=== PATIENT | female | born 1935 | race Hispanic/Latino ===

== ENCOUNTER 2017-07-28 11:08 | Emergency (ER) | payer MEDICARE ==
[~2017-07-28] VITALS: Ht 165.1 cm; Wt 59.0 kg
[~2017-07-28 11:08] MED LIST: ALBUTEROL SULF8.5 GM; ASPIRIN CHEW81 MG PO; DIGOXIN125 MCG PO; FUROSEMIDE40 MG PO; HUMALOG100 UNIT/1 SQ; LANTUS100 UNITS/ SQ; LEVAQUIN500 MG PO; LISINOPRIL10 MG PO; LORATADINE10 MG PO; LOVAZA1 GM PO; METOPROLOL TART50 MG PO; NIFEDIPINE10 MG PO; PANTOPRAZOLE SO40 MG PO; PLAVIX75 MG PO; POTASSIUM CHLO20 ME1 PO; PRAVASTATIN SOD40 MG PO; TRAMADOL-ACETAMI1 EA PO; TRESIBA SQ; ZETIA10 MG PO
[2017-07-28 11:59] LABS: BASOPHILS # (AUTO) 0.1 (0.0-0.1); BASOPHILS % 0.5 % (0.0-1.0); EOSINOPHILS # (AUTO) 0.1 (0.0-0.4); EOSINOPHILS % 0.6 % (0.0-6.0); HEMATOCRIT 35.8 % (34.2-44.1); HEMOGLOBIN 12.3 g/dL (12.0-16.0); LYMPHOCYTES # (AUTO) 1.5 (1.0-3.2); LYMPHOCYTES % 16.4 % (18.0-39.1); MEAN CORPUSCULAR HEMOGLOBIN 30.7 pg (28-32); MEAN CORPUSCULAR HGB CONC 34.4 g/dL (31-35); MEAN CORPUSCULAR VOLUME 89.3 fL (81-99); MONOCYTES # (AUTO) 0.3 (0.2-0.8); MONOCYTES % 3.3 % (4.4-11.3); NEUTROPHILS # (AUTO) 7.4 (2.1-6.9); NEUTROPHILS % 78.8 % (38.7-80.0); PLATELET COUNT 298 x10e3/uL (140-360); RED BLOOD COUNT 4.01 x10e6/uL (3.6-5.1); RED CELL DISTRIBUTION WIDTH 13.3 % (11.7-14.4)
[2017-07-28 12:10] LABS: ALBUMIN 3.5 g/dL (3.5-5.0); ALBUMIN/GLOBULIN RATIO 0.9 (0.8-2.0); ANION GAP 17.1 mmol/L (8-16); CALCIUM 9.9 mg/dL (8.4-10.2); CREATININE, SERUM 1.5 mg/dL (0.57-1.11); POTASSIUM 4.1 mmol/L (3.5-5.1)
--- NOTE | 2017-07-28 12:45 | Diagnostic Imaging Report ---
PROCEDURE:X-RAY ABDOMEN - KUB COMPARISON:None. INDICATIONS:CONSTIPATION FINDINGS: Nonobstructive bowel gas pattern with mild amount of retained stool. No air-filled, dilated loops of bowel. No abnormal calcifications overlie the genitourinary system. Left pelvic phlebolith. No acute bony abnormalities. CONCLUSION: Nonobstructive bowel gas pattern with mild amount of retained stool. Phong Sheffield M.D. Dictated by: Phong Sheffield M.D. on 07/28/2017 at 12:46 Electronically approved by: Phong Sheffield M.D. on 07/28/2017 at 12:46
[2017-07-28 12:52] LABS: CLARITY,URINE CLEAR (CLEAR); COLOR,URINE YELLOW (YELLOW)
[2017-07-28 12:53] LABS: BILIRUBIN,URINE NEGATIVE (NEGATIVE); KETONES,URINE NEGATIVE (NEGATIVE); LEUKOCYTE ESTERASE ,URINE NEGATIVE (NEGATIVE); NITRITE,URINE NEGATIVE (NEGATIVE); PROTEIN,URINE DIPSTICK 2+ (NEGATIVE); URINE UROBILINOGEN 0.2 mg/dL (0.2 - 1)
[2017-07-28 13:03] LABS: BACTERIA,URINE MODERATE /HPF; EPITHELIAL CELLS,URINE RARE /LPF; RBC,URINE 0-5 /HPF (0-5)
[2017-07-28 14:38] VITALS: BP 175/77
== END 2017-07-28 14:55 | disposition home or self-care (01) ==
LOC: ER 11:09
DX: R10.32 Left lower quadrant pain (principal); N39.0 Urinary tract infection, site not specified; K59.00 Constipation, unspecified; I10 Essential (primary) hypertension; E11.9 Type 2 diabetes mellitus without complications; Z86.73 Personal history of transient ischemic attack (TIA), and cerebral infarction without residual deficits; Z95.1 Presence of aortocoronary bypass graft
CPT/HCPCS: 36415; 74018; 80053; 81001; 85025; 93005; 99284

== ENCOUNTER 2017-09-03 14:22 | Inpatient (IN) | payer MEDICARE ==
[~2017-09-03] VITALS: Ht 152.4 cm; Wt 50.8 kg
--- OUTSIDE RECORDS SUMMARY | 2017-09-03 14:24 | XMS REPORT ---
Author Author [facility] Address Unknown Phone Unavailable Care Team Providers Care Vest Front Presser Name Role Phone JUVENAL NIX Unavailable Unavailable Problems This patient has no known problems. Allergies, Adverse Reactions, Alerts This patient has no known allergies or adverse reactions. Medications This patient has no known medications. Results Test Description Test Time Test Comments Text Results Atomic Results Result Comments ABDOMEN-1VIEW (KUB) [place] [address] Patient Name: PETER VÁSQUEZ MR #: [id number] : 1935 Age/Sex: 81/F Req #: [id number] Adm Physician: Ordered by: JUVENAL NIX MD Report #: [id number] Location: ER Room/Bed: Procedure: [id number] DX/ABDOMEN-1VIEW (KUB) Exam Date: 07/28/17 Exam Time : 1200 REPORT STATUS: Signed PROCEDURE: X-RAY ABDOMEN - KUB COMPARISON: None. INDICATIONS: CONSTIPATION FINDINGS: Nonobstructive bowel gas pattern with mild amount of retained stool. No air- filled, dilated loops of bowel. No abnormal calcifications overlie the genitourinary system. Left pelvic phlebolith. No acute bony abnormalities. CONCLUSION: Nonobstructive bowel gas pattern with mild amount of retained stool. Mer Sheffield M.D. Dictated by: Mer Sheffield M.D. on 07/28/2017 at 12:46 Electronically approved by: Mer Sheffield M.D. on 07/28/2017 at 12:46 Dictated By: MER SHEFFIELD MD [id number] Transcribed By: ALEX on 07/28/17 1246 COPY TO: JUVENAL NIX MD
--- OUTSIDE RECORDS SUMMARY | 2017-09-03 14:25 | XMS REPORT | Continuity of Care Document ---
Author Author [facility] Organization [facility] Address [address] [place] [address] Phone Unavailable Care Team Providers Care Event Marketing Intern Name Role Phone WHIT BARBOSA DO PCP Insurance Providers Guarantor Tiffany Stern Address [address] [place] [address] Email Payer [facility] Policy Number [id number] Subscriber's Name Tiffany Stern Relationship 18 Self / Same As Patient Group Number [id number] Group Name RETIRED Effective Date 16 Payer [facility] Policy Number [id number] Subscriber's Name Tiffany Stern Relationship 18 Self / Same As Patient Effective Date 11 Advance Directives Directive Response Recorded Date/Time Does the patient have an advance directive? No 09/11/16 3:56pm If yes, is advance directive on file with [facility]? No 04/23/16 12:35am If not on file with [facility] will patient provide a copy? No 04/23/16 12:35am Do you have a Directive to Physician? No 07/28/17 12:21pm Do you have a Medical Power of Boat Carpenter? No 07/28/17 12:21pm Do you have an out of hospital Do Not Resuscitate Order? No 07/28/17 12:21pm Do you have any special needs we should be aware of? No 07/28/17 12:21pm Do you have a support person here with you today? Yes 07/28/17 12:21pm Did patient receive Notice of Privacy Practices? Yes 07/28/17 12:21pm Did patient receive patient rights and responsibilities? Yes 07/28/17 12:21pm Problems Medical Problem Onset Date Status Diabetes Unknown Hyperglycemia Unknown Leukocytosis Unknown Pneumonia Unknown Medications Current Home Medications Medication Dose Units Route Directions Days Qty Instructions Start Date Aspirin (Aspirin Chew) 81 Mg Chew 81 Mg Oral Daily 30 Tab Clopidogrel Bisulfate (Plavix) 75 Mg Tablet 75 Mg Oral Daily 30 Tab Digoxin 125 Mcg Tablet 0.125 Mg Oral Daily 30 Tab Furosemide 40 Mg Tablet 20 Mg Oral Daily 30 Tab Insulin Lispro (Humalog) 100 Unit/1 Ml Cartridge 28 Unit Sub-Q Before Meals Lisinopril 10 Mg Tablet 10 Mg Oral Daily 30 Tab Loratadine 10 Mg Tablet 10 Mg Oral Daily 30 Tab Metoprolol Tartrate 50 Mg Tablet 50 Mg Oral Twice A Day Nifedipine 10 Mg Cap 60 Mg Oral Every 12 Hours 90 Cap [place]-3 Acid Ethyl Esters (Lovaza) 1 Gm Capsule 2 Tab Oral Daily THERAPEUTICALLY SUBSTITUTED WITH OMEGA 3 FATTY ACID Pantoprazole Sodium (Protonix) 40 Mg Tablet.dr 40 Mg Oral Daily Potassium Chloride 20 Meq Tab.er.prt 20 Meq Oral Daily Pravastatin Sodium 40 Mg Tablet 40 Mg Oral Tresiba 72 Sub-Q Daily Past Home Medications Medication Directions Ordered Status Albuterol Sulfate (Albuterol Sulfate Hfa) 8.5 Gm Hfa.aer.ad, Every 4 Hours Discontinued Ezetimibe (Zetia) 10 Mg Tablet, 10 Mg Oral Daily Discontinued Insulin Glargine (Lantus) 100 Units/Ml Ml, 30 Units Sub-Q Twice A Day Discontinued Levofloxacin (Levaquin) 500 Mg Tablet, 500 Mg Oral Daily Discontinued [place]-3 Acid Ethyl Esters (Lovaza) 1 Gm Capsule, 1 Gm Oral Twice A Day Discontinued Tramadol/Acetaminophen (Tramadol-Acetaminophn 37.5-325) 1 Ea Tab, 1 Tab Oral Every 8 Hours as needed for Pain Discontinued Social History Social History Problem Response Recorded Date/Time Onset Date Status Hx Psychiatric Problems No 09/11/2016 3:56pm Not Applicable Not Applicable Hx Eating Disorder No 09/11/2016 3:56pm Not Applicable Not Applicable Hx Substance Use Disorder No 09/11/2016 3:56pm Not Applicable Not Applicable Hx Depression No 09/11/2016 3:56pm Not Applicable Not Applicable Hx Alcohol Use No 09/11/2016 3:56pm Not Applicable Not Applicable Hx Substance Use Treatment No 09/11/2016 3:56pm Not Applicable Not Applicable Hx Physical Abuse No 09/11/2016 3:56pm Not Applicable Not Applicable Smoking Status Start Date Stop Date Never Smoker Hospital Discharge Instructions No hospital discharge instruction information available. Plan of Care Discharge Date 07/28/17 2:55pm Disposition HOME, SELF-CARE Condition at Discharge Stable Instructions/Education Provided Urinary Tract Infection - Pediatric Prescriptions See Medication Section Referrals WHIT BARBOSA DO Order Date: Call for an appointment Address: [address] [place] [id number] Note: Call for follow up appointment to check urine in one week. Additional Instructions/Education Call for follow up appointment to see your medical provider. Take over the counter Motrin or Tylenol medication as needed for comfort. If prescribed pain medication on discharge, take the pain medication as prescribed and adhere to the warnings given for pain medication such as no swimming, driving operating heavy machinery, drinking or mixing with other medications that can interact with the narcotic. discussed at the bedside, drink fluids, rest and return to the emergency department for any fever, shortness of breath, chest pain, abdominal pain, trouble handling oral secretions or any new concerns. Functional Status No functional status information available. Allergies, Adverse Reactions, Alerts Allergen Type Severity Reaction Status Last Updated Codeine Allergy Unknown Active 07/28/17 Tramadol Allergy Unknown Itching, rash Active 07/28/17 Immunizations No immunization information available. Vital Signs Acute Vital Signs Vital Response Date/Time Pulse Pulse Rate (adult) 85 bpm (60 - 90) 07/28/2017 2:38pm Respiratory Rate 20 bpm (12 - 24) 07/28/2017 2:38pm Blood Pressure 175/77 mm Hg 07/28/2017 2:38pm Height 5 ft 5 in 07/28/2017 11:10am Weight 130 lb 07/28/2017 11:10am Body Mass Index 21.6 kg/m^2 07/28/2017 11:10am Results Laboratory Results Test Name Result Units Flags Reference Collection Date/Time Result Date/ Time Comments White Blood Count 9.34 x10e3/uL 4.8-10.8 07/28/2017 11:07/28/2017 12:04pm Red Blood Count 4.01 x10e6/uL 3.6-5.1 07/28/2017 11:07/28/2017 12: 04pm Hemoglobin 12.3 g/dL 12.0-16.0 07/28/2017 11:07/28/2017 12:04pm Hematocrit 35.8 % 34.2-44.1 07/28/2017 11:07/28/2017 12:04pm Mean Corpuscular Volume 89.3 fL 81-99 07/28/2017 11:07/28/2017 12: 04pm Mean Corpuscular Hemoglobin 30.7 pg 28-32 07/28/2017 11:2017 12:04pm Mean Corpuscular Hemoglobin Concent 34.4 g/dL 31-35 07/28/2017 11:07/28/2017 12:04pm Red Cell Distribution Width 13.3 % 11.7-14.4 07/28/2017 11:2017 12:04pm Platelet Count 298 x10e3/uL 140-360 07/28/2017 11:07/28/2017 12: 04pm Neutrophils (%) (Auto) 78.8 % 38.7-80.0 07/28/2017 11:07/28/2017 12:04pm Lymphocytes (%) (Auto) 16.4 % L 18.0-39.1 07/28/2017 11:07/28/2017 12:04pm Monocytes (%) (Auto) 3.3 % L 4.4-11.3 07/28/2017 11:07/28/2017 12: 04pm Eosinophils (%) (Auto) 0.6 % 0.0-6.0 07/28/2017 11:07/28/2017 12: 04pm Basophils (%) (Auto) 0.5 % 0.0-1.0 07/28/2017 11:07/28/2017 12: 04pm IM GRANULOCYTES % 0.4 % 0.0-1.0 07/28/2017 11:07/28/2017 12:04pm Neutrophils # (Auto) 7.4 H 2.1-6.9 07/28/2017 11:07/28/2017 12: 04pm Lymphocytes # (Auto) 1.5 1.0-3.2 07/28/2017 11:07/28/2017 12: 04pm Monocytes # (Auto) 0.3 0.2-0.8 07/28/2017 11:07/28/2017 12:04pm Eosinophils # (Auto) 0.1 0.0-0.4 07/28/2017 11:07/28/2017 12: 04pm Basophils # (Auto) 0.1 0.0-0.1 07/28/2017 11:07/28/2017 12:04pm Absolute Immature Granulocyte (auto 0.04 x10e3/uL 0-0.1 07/28/2017 11: 07/28/2017 12:04pm Urine Color YELLOW YELLOW 07/28/2017 12:40pm 07/28/2017 12:53pm Urine Clarity CLEAR CLEAR 07/28/2017 12:40pm 07/28/2017 12:53pm Urine Specific [place] 1.020 1.010-1.025 07/28/2017 12:40pm 2017 12:53pm Urine pH 6 5 - 7 07/28/2017 12:40pm 07/28/2017 12:53pm Urine Leukocyte Esterase NEGATIVE NEGATIVE 07/28/2017 12:40pm 2017 12:53pm Urine Nitrite NEGATIVE NEGATIVE 07/28/2017 12:40pm 07/28/2017 12: 53pm Urine Protein 2+ H NEGATIVE 07/28/2017 12:40pm 07/28/2017 12:53pm Urine Glucose (UA) 1+ H NEGATIVE 07/28/2017 12:40pm 07/28/2017 12: 53pm Urine Ketones NEGATIVE NEGATIVE 07/28/2017 12:40pm 07/28/2017 12: 53pm Urine Urobilinogen 0.2 mg/dL 0.2 - 1 07/28/2017 12:40pm 07/28/2017 12: 53pm Urine Bilirubin NEGATIVE NEGATIVE 07/28/2017 12:40pm 07/28/2017 12: 53pm Urine Blood NEGATIVE NEGATIVE 07/28/2017 12:40pm 07/28/2017 12:53pm Urine WBC 6-10 /HPF H 0-5 07/28/2017 12:40pm 07/28/2017 1:03pm Urine RBC 0-5 /HPF 0-5 07/28/2017 12:40pm 07/28/2017 1:03pm Urine Bacteria MODERATE /HPF H NONE 07/28/2017 12:40pm 07/28/2017 1: 03pm Urine Epithelial Cells RARE /LPF NONE 07/28/2017 12:40pm 07/28/2017 1: 03pm Sodium Level 137 mmol/L 136-145 07/28/2017 11:07/28/2017 12:12pm Potassium Level 4.1 mmol/L 3.5-5.1 07/28/2017 11:07/28/2017 12: 12pm Chloride Level 104 mmol/L 98-107 07/28/2017 11:07/28/2017 12:12pm Carbon Dioxide Level 20 mmol/L L 22-29 07/28/2017 11:07/28/2017 12: 12pm Anion Gap 17.1 mmol/L H 8-16 07/28/2017 11:07/28/2017 12:12pm Blood Urea Nitrogen 16 mg/dL 7-26 07/28/2017 11:07/28/2017 12: 12pm Creatinine 1.50 mg/dL H 0.57-1.11 07/28/2017 11:07/28/2017 12:12pm BUN/Creatinine Ratio 11 6-25 07/28/2017 11:07/28/2017 12:12pm Estimat Glomerular Filtration Rate 33 ML/MIN L 60- 07/28/2017 11: 12:12pm Ranges were taken from the National Kidney Disease Education Program and the National Kidney Foundation literature. Reference ranges: 60 or greater: Normal 16-59 (for 3 consecutive months): Chronic kidney disease 15 or less: Kidney failure Glucose Level 224 mg/dL H 74-118 07/28/2017 11:07/28/2017 12:12pm Calcium Level 9.9 mg/dL 8.4-10.2 07/28/2017 11:07/28/2017 12:12pm Total Bilirubin 0.7 mg/dL 0.2-1.2 07/28/2017 11:07/28/2017 12: 12pm Aspartate Amino Transf (AST/SGOT) 17 IU/L 5-34 07/28/2017 11:07/28 12:12pm Alanine Aminotransferase (ALT/SGPT) 12 IU/L 0-55 07/28/2017 11: 12:12pm Total Protein 7.5 g/dL 6.5-8.1 07/28/2017 11:07/28/2017 12:12pm Albumin 3.5 g/dL 3.5-5.0 07/28/2017 11:07/28/2017 12:12pm Globulin 4.0 g/dL H 2.3-3.5 07/28/2017 11:07/28/2017 12:12pm Albumin/Globulin Ratio 0.9 0.8-2.0 07/28/2017 11:07/28/2017 12: 12pm Alkaline Phosphatase 49 IU/L 40-150 07/28/2017 11:07/28/2017 12: 12pm Procedures No procedure information available. Encounters Encounter Location Arrival/Admit Date Discharge/Depart Date Attending Provider Departed Emergency Room [facility] 07/28/17 11:09am 07/28 2:55pm JUVENAL NIX MD
[2017-09-03 15:20] LABS: BASOPHILS # (AUTO) 0.1 (0.0-0.1); BASOPHILS % 0.7 % (0.0-1.0); EOSINOPHILS # (AUTO) 0.2 (0.0-0.4); EOSINOPHILS % 1.3 % (0.0-6.0); HEMATOCRIT 36.8 % (34.2-44.1); HEMOGLOBIN 12.6 g/dL (12.0-16.0); MEAN CORPUSCULAR HEMOGLOBIN 30.7 pg (28-32); MEAN CORPUSCULAR HGB CONC 34.2 g/dL (31-35); MEAN CORPUSCULAR VOLUME 89.8 fL (81-99); MONOCYTES # (AUTO) 0.7 (0.2-0.8); NEUTROPHILS # (AUTO) 13.3 (2.1-6.9); NEUTROPHILS % 81.2 % (38.7-80.0); PLATELET COUNT 341 x10e3/uL (140-360); RED CELL DISTRIBUTION WIDTH 12.9 % (11.7-14.4)
[2017-09-03 15:25] LABS: INR 1.07; PROTHROMBIN TIME 13.1 seconds (11.9-14.5)
[2017-09-03 15:26] LABS: PARTIAL THROMBOPLASTIN TIME 24.1 seconds (23.8-35.5)
[2017-09-03 15:32] LABS: ALBUMIN/GLOBULIN RATIO 1.1 (0.8-2.0); ANION GAP 19.1 mmol/L (8-16); CREATININE, SERUM 2.33 mg/dL (0.57-1.11); POTASSIUM 5.1 mmol/L (3.5-5.1)
[2017-09-03 15:52] LABS: CREATINE KINASE MB 1.1 ng/mL (0-5.0); THYROID STIMULATING HORMONE 4.129 uIU/mL (0.350-4.940)
[2017-09-03 15:56] LABS: CLARITY,URINE SL CLOUDY (CLEAR); COLOR,URINE YELLOW (YELLOW)
[2017-09-03 15:57] LABS: BILIRUBIN,URINE NEGATIVE (NEGATIVE); KETONES,URINE NEGATIVE (NEGATIVE); LEUKOCYTE ESTERASE ,URINE NEGATIVE (NEGATIVE); NITRITE,URINE NEGATIVE (NEGATIVE); PROTEIN,URINE DIPSTICK 2+ (NEGATIVE); URINE UROBILINOGEN 0.2 mg/dL (0.2 - 1)
[2017-09-03 15:59] LABS: AMORPHOUS SEDIMENT,URINE MODERATE (FEW); BACTERIA,URINE FEW /HPF; EPITHELIAL CELLS,URINE FEW /LPF; RBC,URINE 0-5 /HPF (0-5); WBC,URINE (MAN) 0-5 /HPF (0-5)
--- NOTE | 2017-09-03 16:28 | Diagnostic Imaging Report ---
EXAM: ABDOMEN-1VIEW (KUB), DATE: 09/03/2017 3:08 PM INDICATION: Constipation COMPARISON: None FINDINGS: LINES/TUBES: None BOWEL PATTERN: Paucity of bowel gas. No significant stool identified. SOFT TISSUES: Vascular calcifications. No mass effect. BONES: No acute findings. IMPRESSION: Nonspecific bowel gas pattern with paucity of bowel gas. Signed by: DR. Easton Augustin MD on 09/03/2017 4:24 PM
--- NOTE | 2017-09-03 18:24 | Diagnostic Imaging Report ---
EXAM: CT Abdomen and Pelvis WITHOUT contrast INDICATION: \S\STONE PROTOCOL \S\[id number] \S\1715 \S\Y COMPARISON: None. TECHNIQUE: Abdomen and pelvis were scanned utilizing a multidetector helical scanner from the lung base to the pubic symphysis without administration of IV contrast. Absence of intravenous contrast decreases sensitivity for detection of focal lesions and vascular pathology. Coronal and sagittal reformations were obtained. Routine protocol was performed. IV CONTRAST: None ORAL CONTRAST: Water COMPLICATIONS: None RADIATION DOSE: Total DLP: C 56.03 mGy*cm Estimated effective dose: (DLP x 0.015 x size factor) mSv CTDIvol has been reviewed. It is below the limits set by the Radiation Protocol Committee (RPC). FINDINGS: LINES and TUBES: None. LOWER THORAX: Unremarkable HEPATOBILIARY: No focal hepatic lesions. No biliary ductal dilation. GALLBLADDER: Absent. SPLEEN: No splenomegaly. PANCREAS: No focal masses or ductal dilatation. ADRENALS: No adrenal nodules KIDNEYS/URETERS: No hydronephrosis. No suspicious contour abnormalities. No stones. GI TRACT: Small hiatal hernia. Circumferential rectal wall thickening with mesorectal fat stranding. No abnormal distention, additional wall thickening, or evidence of bowel obstruction. There are diverticula within the colon without evidence of diverticulitis. Appendix is not clearly identified. There is however no fat stranding or adenopathy in the right lower quadrant to suggest appendicitis. PELVIC ORGANS/BLADDER: Hysterectomy. No adnexal masses. Urinary bladder without focal thickening. LYMPH NODES: No lymphadenopathy. VESSELS: There is severe atherosclerotic disease in the aorta and major arterial branches. A 9 mm peripherally calcified structure along the right renal artery (series 3 image 48) likely represents a small saccular aneurysm. PERITONEUM / RETROPERITONEUM: No free air or fluid. BONES: There are degenerative changes in the lumbar spine. SOFT TISSUES: Unremarkable. IMPRESSION: Circumferential rectal wall thickening with adjacent fat stranding compatible with proctitis, differential including infectious or inflammatory etiology. Ischemic etiology is uncommon secondary to the collateral supply to the rectum, although not excluded given patient's severe atherosclerotic disease. Clinical correlation recommended. Signed by: DR. Easton Augustin MD on 09/03/2017 6:20 PM
[2017-09-03] MEDS ORDERED: ONDANSETRON HCL 4 MG ORAL DISINTEGRATING TAB PO PRN (18:45)
[2017-09-03 20:53] VITALS: BP 187/79
[2017-09-03 20:56] VITALS: BP 187/79
[2017-09-03] MEDS: SODIUM CHLORIDE 0.9% 1000ML 1,000 ML IV SCH (21:16)
[2017-09-03] MEDS: PIPERACILLIN/TAZO 2.25 GM 50 ML IV SCH (21:16)
[2017-09-03] MEDS: MORPHINE SULFATE 2 MG/ML SYR IV PRN (22:25)
[2017-09-04] VITALS (7 sets, daily range): BP systolic 97–179; BP diastolic 53–75
[2017-09-04] MEDS: ACETAMINOPHEN 325 MG TAB PO PRN ×3 (00:58→23:23)
[2017-09-04] MEDS: METRONIDAZOLE 500MG/NS 100ML 100 ML IV SCH ×4 (00:58→17:30)
[2017-09-04] MEDS: PIPERACILLIN/TAZO 2.25 GM 50 ML IV SCH ×3 (05:35→22:00)
[2017-09-04 07:38] LABS: BASOPHILS % 0.3 % (0.0-1.0); EOSINOPHILS % 0.3 % (0.0-6.0); HEMATOCRIT 32.4 % (34.2-44.1); HEMOGLOBIN 10.7 g/dL (12.0-16.0); LYMPHOCYTES # (AUTO) 1.7 (1.0-3.2); LYMPHOCYTES % 14.3 % (18.0-39.1); MEAN CORPUSCULAR HEMOGLOBIN 30.1 pg (28-32); MEAN CORPUSCULAR VOLUME 91.3 fL (81-99); MONOCYTES # (AUTO) 0.7 (0.2-0.8); MONOCYTES % 5.7 % (4.4-11.3); NEUTROPHILS # (AUTO) 9.4 (2.1-6.9); PLATELET COUNT 308 x10e3/uL (140-360); RED BLOOD COUNT 3.55 x10e6/uL (3.6-5.1); RED CELL DISTRIBUTION WIDTH 12.8 % (11.7-14.4)
[2017-09-04 08:27] LABS: ALBUMIN 3.3 g/dL (3.5-5.0); ANION GAP 15.3 mmol/L (8-16); CALCIUM 9.5 mg/dL (8.4-10.2); CREATININE, SERUM 1.8 mg/dL (0.57-1.11); POTASSIUM 4.3 mmol/L (3.5-5.1)
[2017-09-04] MEDS ORDERED: DEXTROSE 50% SYRINGE 50 ML IV PRN (09:45)
[2017-09-04] MEDS: DIGOXIN 0.125 MG TAB PO SCH (10:36)
[2017-09-04] MEDS: METOPROLOL TARTRATE 50 MG TAB PO SCH ×2 (10:37→17:30)
[2017-09-04] MEDS: NIFEDIPINE 10 MG CAP PO SCH ×2 (10:37→21:50)
[2017-09-04] MEDS: PANTOPRAZOLE SOD 40 MG TABEC PO SCH (10:37)
[2017-09-04] MEDS: ASPIRIN 81 MG CHEW TAB PO SCH (10:37)
[2017-09-04] MEDS: CLOPIDOGREL BISULFATE 75 MG TAB PO SCH (10:37)
[2017-09-04] MEDS: SODIUM CHLORIDE 0.9% 1000ML 1,000 ML IV SCH (11:18)
[2017-09-04] MEDS: INSULIN REGULAR, HUMAN 100 UNIT/1 ML 3ML VIAL SQ SCH ×3 (12:09→21:00)
[2017-09-04] MEDS: MORPHINE SULFATE 2 MG/ML SYR IV PRN (14:21)
--- NOTE | 2017-09-04 16:51 | History and Physical ---
PRIMARY CARE PROVIDER: Dr. Ian Puga. CHIEF COMPLAINT: Left lower quadrant abdominal pain. HISTORY OF PRESENT ILLNESS: Ms. Stern is an 81-year-old lady complaining of constipation for the last couple of days. She took a laxative, had some diarrhea, and had pain with defecation and comes in complaining of left lower quadrant abdominal pain. REVIEW OF SYSTEMS: She denies fever, chills or weight loss. She denies sinus congestion or sore throat. She denies chest pain or palpitations. She denies shortness of breath, wheezing, or cough. She has abdominal pain in the left lower quadrant. She had some constipation, which she took a laxative and had diarrhea. She has pain with defecation. She denies dysuria or flank pain. She denies rash or pruritus. She denies joint pain or swelling. She denies bleeding or bruising. She denies headache, vertigo, or loss of consciousness. She denies joint pain or swelling. She denies depression, agitation, homicide or suicidal ideation. PAST MEDICAL HISTORY: Significant for longstanding hypertension and type 2 diabetes for 18 years. She has coronary artery disease, had a double bypass CABG procedure in 2008. 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 She does have very low movement of the left hand and arm, but can move the left leg. She has a history of CABG in 2008 and a distant history of cholecystectomy, hysterectomy, and appendectomy. The patient also has a history of chronic kidney disease stage 3 with baseline GFR in the 50s. MEDICATIONS: Include; 1. Insulin 28 units before meals. 2. Pravastatin 40 mg at bedtime. 3. Tresiba 72 units daily. 4. Lisinopril 10 mg daily. 5. Lasix 20 mg daily. 6. Loratadine 10 mg daily. 7. Lovaza 1 gram daily. 8. Potassium 20 mEq daily. 9. Aspirin 81 mg daily. 10. Plavix 75 mg daily. 11. Digoxin 0.125 mg daily. 12. Metoprolol 50 mg twice daily. 13. Procardia 60 mg twice daily. 14. Protonix 40 mg daily. FAMILY HISTORY: Significant for hypertension, diabetes, and heart disease. SOCIAL HISTORY: The patient is . Wolof is her primary language. She is a former smoker. She does not drink or use illegal drugs and she has been generally independently functioning with some assistance from her daughter. PHYSICAL EXAMINATION PSYCHIATRIC: She is alert and oriented x3 with normal mood and affect. CONSTITUTIONAL: She has a normal body habitus. She is in no acute distress. VITAL SIGNS: As follows: Blood pressure 176/72, pulse 94 and regular, respiratory rate 20, O2 sat 95%, temperature 98.4. HEENT: Her head is atraumatic. Her eyes are anicteric with clear conjunctivae. Ears and nares are without erythema or discharge. Oropharynx is clear. NECK: Supple with no mass or thyromegaly. LYMPHATIC SYSTEM: She has no palpable cervical, axillary or inguinal adenopathy. CARDIOVASCULAR: Her heart has a regular rate and rhythm without murmur or extra heart sound. She has no carotid bruit. She has no peripheral edema. She has palpable dorsal pedal pulses. RESPIRATORY: Lungs are clear to auscultation and percussion with normal respiratory effort. GASTROINTESTINAL: Her abdomen is soft without organomegaly or masses. She has aimv-vl-yfptworl tenderness in the left lower quadrant without rebound or guarding. She has normal bowel sounds present. CUTANEOUS: Her skin is warm and dry to touch with no rash or skin breakdown. MUSCULOSKELETAL: Her joints are in normal alignment without erythema or swelling. She has no calf tenderness. NEUROLOGIC: Shows weakness on the left side, most pronounced in the left arm. She has contractures of the left hand. She has normal strength and sensation on the right and her cranial nerves are intact. DIAGNOSTIC STUDIES: KUB shows no evidence of disease. Her CT scan of the abdomen shows circumferential inflammatory changes in the rectum with perirectal stranding suggesting proctitis, cannot rule out ischemic, although unlikely in view of the distribution. Her TSH is 4.129. Troponin 0.014. Lactic acid 16.6, which is normal. Her chemistry shows normal electrolytes. CO2 is 17, glucose is 201, creatinine 2.33, BUN 39 for a GFR of 20. Her baseline is in the 50s. Calcium is 10.0. CBC shows a white count of 16.35 with 81% neutrophils, 12% lymphocytes, 4% monocytes, hemoglobin 12.6, hematocrit 36.8, and platelet count 341,000. Pro-time is 13.1, PTT 24.1, INR 1.07, which are all normal. Her AST is 56, which is slightly elevated. The rest of her transaminases, bilirubin, and alk phos are all normal. After 24 hours of hydration, the patient's creatinine is 1.8, BUN 33 for a GFR of 27, which is slightly improved and calcium is 9.5. CO2 is 18. IMPRESSION AND PLAN 1. Proctitis with sepsis. Patient will be started on IV Zosyn and Flagyl and clear liquids until she is able to have a bowel movement without pain. Then, we will advance her diet. 2. Acute kidney injury on chronic kidney disease stage 3. We will give the patient IV fluids until her baseline GFR is reached, probably 48 hours. In the meantime, we will hold her lisinopril and Lasix in view of the acute kidney injury. 3. Hypertension with coronary artery disease, status post coronary artery bypass graft and chronic kidney disease stage 3. The patient has been controlled. We will continue Procardia, metoprolol, and aspirin. We will add IV hydralazine as needed. 1. Type 2 diabetes with chronic kidney disease. We will continue Levemir 30 units daily and sliding scale insulin. 2. For prophylaxis, the patient will be on subcutaneous heparin for deep venous thrombosis prophylaxis and Protonix for gastrointestinal prophylaxis. Job#: [id number] VAS
[2017-09-04] MEDS ORDERED: BISACODYL 5 MG TAB EC PO ONE (20:00)
[2017-09-04] MEDS: PHE/SHARK LIVER OIL/COCOA BUT 24 EA SUPP RC SCH (21:00)
[2017-09-04] MEDS: ESCITALOPRAM OXALATE 10 MG TAB PO SCH (21:03)
[2017-09-04] MEDS: POLYETHYLENE GLYCOL 3350 17 GM PACK PO SCH (21:04)
[2017-09-04] MEDS: HEPARIN SOD (PORCINE) 5,000 UNIT/ML VIAL SC SCH (21:24)
[2017-09-04] MEDS: NYSTATIN 15 GM POWDER UD BTL TOP SCH (21:26)
[2017-09-04] MEDS: BALSAM PERU/CASTOR OIL 60 GM OINT...G. TP SCH (21:26)
[2017-09-05] VITALS (10 sets, daily range): BP systolic 95–187; BP diastolic 45–79
[2017-09-05] MEDS: SODIUM CHLORIDE 0.9% 1000ML 1,000 ML IV SCH (02:50)
[2017-09-05] MEDS: METRONIDAZOLE 500MG/NS 100ML 100 ML IV SCH ×4 (05:24→17:03)
[2017-09-05] MEDS: PIPERACILLIN/TAZO 2.25 GM 50 ML IV SCH ×3 (05:53→21:25)
[2017-09-05 07:23] LABS: BASOPHILS # (AUTO) 0.1 (0.0-0.1); BASOPHILS % 0.8 % (0.0-1.0); EOSINOPHILS # (AUTO) 0.2 (0.0-0.4); EOSINOPHILS % 2.8 % (0.0-6.0); HEMATOCRIT 28.4 % (34.2-44.1); HEMOGLOBIN 9.7 g/dL (12.0-16.0); LYMPHOCYTES # (AUTO) 1.8 (1.0-3.2); LYMPHOCYTES % 24.8 % (18.0-39.1); MEAN CORPUSCULAR HGB CONC 34.2 g/dL (31-35); MEAN CORPUSCULAR VOLUME 90.7 fL (81-99); MONOCYTES # (AUTO) 0.5 (0.2-0.8); MONOCYTES % 6.6 % (4.4-11.3); NEUTROPHILS # (AUTO) 4.8 (2.1-6.9); NEUTROPHILS % 64.6 % (38.7-80.0); PLATELET COUNT 250 x10e3/uL (140-360); RED BLOOD COUNT 3.13 x10e6/uL (3.6-5.1); RED CELL DISTRIBUTION WIDTH 12.8 % (11.7-14.4)
[2017-09-05] MEDS: INSULIN REGULAR, HUMAN 100 UNIT/1 ML 3ML VIAL SQ SCH ×4 (07:30→21:00)
[2017-09-05 07:50] LABS: ANION GAP 11.8 mmol/L (8-16); CALCIUM 9.1 mg/dL (8.4-10.2); CREATININE, SERUM 1.18 mg/dL (0.57-1.11); MAGNESIUM 1.5 MG/DL (1.3-2.1); POTASSIUM 3.8 mmol/L (3.5-5.1)
[2017-09-05] MEDS: CLOPIDOGREL BISULFATE 75 MG TAB PO SCH (08:17)
[2017-09-05] MEDS: POLYETHYLENE GLYCOL 3350 17 GM PACK PO SCH ×2 (08:17→21:24)
[2017-09-05] MEDS: DIGOXIN 0.125 MG TAB PO SCH (08:17)
[2017-09-05] MEDS: METOPROLOL TARTRATE 50 MG TAB PO SCH ×2 (08:17→17:03)
[2017-09-05] MEDS: PANTOPRAZOLE SOD 40 MG TABEC PO SCH (08:17)
[2017-09-05] MEDS: ASPIRIN 81 MG CHEW TAB PO SCH (08:17)
[2017-09-05] MEDS: NYSTATIN 15 GM POWDER UD BTL TOP SCH ×2 (08:18→21:24)
[2017-09-05] MEDS: INSULIN DETEMIR 100 UNIT/ML PEN SQ SCH (08:18)
[2017-09-05] MEDS: BALSAM PERU/CASTOR OIL 60 GM OINT...G. TP SCH ×2 (08:18→21:24)
[2017-09-05] MEDS: HEPARIN SOD (PORCINE) 5,000 UNIT/ML VIAL SC SCH ×2 (08:18→21:25)
[2017-09-05] MEDS: ACETAMINOPHEN 325 MG TAB PO PRN ×2 (08:19→21:25)
[2017-09-05] MEDS: NIFEDIPINE 10 MG CAP PO SCH ×2 (10:59→21:25)
[2017-09-05] MEDS: PHE/SHARK LIVER OIL/COCOA BUT 24 EA SUPP RC SCH (21:00)
[2017-09-05] MEDS: ESCITALOPRAM OXALATE 10 MG TAB PO SCH (21:24)
[2017-09-05] MEDS ORDERED: CITRATE OF MAGNESIA 300ML BOTTLE PO ONE (22:15)
[2017-09-05] MEDS ORDERED: BISACODYL 5 MG TAB EC PO ONE ×2 (22:15→23:00)
[2017-09-06] VITALS (7 sets, daily range): BP systolic 129–180; BP diastolic 60–99
[2017-09-06] MEDS: HYDROCODONE/APAP 5MG-325MG TAB PO PRN ×2 (03:23→11:35)
[2017-09-06] MEDS ORDERED: CITRATE OF MAGNESIA 300ML BOTTLE PO ONE (05:00)
[2017-09-06] MEDS: METRONIDAZOLE 500MG/NS 100ML 100 ML IV SCH ×4 (05:07→17:39)
[2017-09-06] MEDS: PIPERACILLIN/TAZO 2.25 GM 50 ML IV SCH ×3 (06:10→21:28)
[2017-09-06 06:56] LABS: BASOPHILS # (AUTO) 0.1 (0.0-0.1); BASOPHILS % 1.1 % (0.0-1.0); EOSINOPHILS # (AUTO) 0.2 (0.0-0.4); EOSINOPHILS % 2.8 % (0.0-6.0); HEMATOCRIT 29.8 % (34.2-44.1); HEMOGLOBIN 9.9 g/dL (12.0-16.0); LYMPHOCYTES # (AUTO) 2.1 (1.0-3.2); LYMPHOCYTES % 39.2 % (18.0-39.1); MEAN CORPUSCULAR HEMOGLOBIN 30.3 pg (28-32); MEAN CORPUSCULAR HGB CONC 33.2 g/dL (31-35); MEAN CORPUSCULAR VOLUME 91.1 fL (81-99); MONOCYTES # (AUTO) 0.5 (0.2-0.8); MONOCYTES % 9.4 % (4.4-11.3); NEUTROPHILS # (AUTO) 2.5 (2.1-6.9); NEUTROPHILS % 47.1 % (38.7-80.0); PLATELET COUNT 263 x10e3/uL (140-360); RED BLOOD COUNT 3.27 x10e6/uL (3.6-5.1); RED CELL DISTRIBUTION WIDTH 12.9 % (11.7-14.4)
[2017-09-06 07:30] LABS: ANION GAP 11.5 mmol/L (8-16); CALCIUM 9.2 mg/dL (8.4-10.2); CREATININE, SERUM 1.04 mg/dL (0.57-1.11); MAGNESIUM 1.5 MG/DL (1.3-2.1); POTASSIUM 3.5 mmol/L (3.5-5.1)
[2017-09-06] MEDS: INSULIN REGULAR, HUMAN 100 UNIT/1 ML 3ML VIAL SQ SCH ×4 (07:30→21:00)
[2017-09-06] MEDS: INSULIN DETEMIR 100 UNIT/ML PEN SQ SCH (09:32)
[2017-09-06] MEDS: POLYETHYLENE GLYCOL 3350 17 GM PACK PO SCH ×2 (09:35→21:27)
[2017-09-06] MEDS: ASPIRIN 81 MG CHEW TAB PO SCH (09:35)
[2017-09-06] MEDS: DIGOXIN 0.125 MG TAB PO SCH (09:35)
[2017-09-06] MEDS: PANTOPRAZOLE SOD 40 MG TABEC PO SCH (09:35)
[2017-09-06] MEDS: CLOPIDOGREL BISULFATE 75 MG TAB PO SCH (09:35)
[2017-09-06] MEDS: METOPROLOL TARTRATE 50 MG TAB PO SCH ×2 (09:35→17:38)
[2017-09-06] MEDS: BALSAM PERU/CASTOR OIL 60 GM OINT...G. TP SCH ×2 (09:36→21:27)
[2017-09-06] MEDS: NYSTATIN 15 GM POWDER UD BTL TOP SCH ×2 (09:36→21:27)
[2017-09-06] MEDS: HEPARIN SOD (PORCINE) 5,000 UNIT/ML VIAL SC SCH ×2 (09:36→21:29)
[2017-09-06] MEDS: NIFEDIPINE 10 MG CAP PO SCH ×2 (09:37→21:28)
[2017-09-06] MEDS: PHE/SHARK LIVER OIL/COCOA BUT 24 EA SUPP RC SCH (21:27)
[2017-09-06] MEDS: ESCITALOPRAM OXALATE 10 MG TAB PO SCH (21:27)
[2017-09-06] MEDS: ACETAMINOPHEN/ASPIRIN/CAFFEINE 1 EA TAB PO PRN (22:22)
[2017-09-07] VITALS (9 sets, daily range): BP systolic 127–198; BP diastolic 60–92
[2017-09-07] MEDS: METRONIDAZOLE 500MG/NS 100ML 100 ML IV SCH ×4 (00:14→18:00)
[2017-09-07] MEDS: PIPERACILLIN/TAZO 2.25 GM 50 ML IV SCH ×3 (06:12→23:12)
[2017-09-07 06:56] LABS: BASOPHILS # (AUTO) 0.1 (0.0-0.1); EOSINOPHILS # (AUTO) 0.3 (0.0-0.4); EOSINOPHILS % 5.2 % (0.0-6.0); HEMATOCRIT 28.4 % (34.2-44.1); HEMOGLOBIN 9.5 g/dL (12.0-16.0); LYMPHOCYTES # (AUTO) 2.5 (1.0-3.2); LYMPHOCYTES % 49.8 % (18.0-39.1); MEAN CORPUSCULAR HEMOGLOBIN 30.2 pg (28-32); MEAN CORPUSCULAR HGB CONC 33.5 g/dL (31-35); MEAN CORPUSCULAR VOLUME 90.2 fL (81-99); MONOCYTES # (AUTO) 0.4 (0.2-0.8); MONOCYTES % 7.9 % (4.4-11.3); NEUTROPHILS # (AUTO) 1.8 (2.1-6.9); NEUTROPHILS % 35.5 % (38.7-80.0); PLATELET COUNT 254 x10e3/uL (140-360); RED BLOOD COUNT 3.15 x10e6/uL (3.6-5.1)
[2017-09-07 07:12] LABS: ANION GAP 11.5 mmol/L (8-16); CALCIUM 9.1 mg/dL (8.4-10.2); CREATININE, SERUM 1.04 mg/dL (0.57-1.11); MAGNESIUM 1.6 MG/DL (1.3-2.1); POTASSIUM 3.5 mmol/L (3.5-5.1)
[2017-09-07] MEDS: INSULIN REGULAR, HUMAN 100 UNIT/1 ML 3ML VIAL SQ SCH ×4 (07:30→21:00)
[2017-09-07] MEDS: PANTOPRAZOLE SOD 40 MG TABEC PO SCH (08:00)
[2017-09-07] MEDS: ASPIRIN 81 MG CHEW TAB PO SCH (09:00)
[2017-09-07] MEDS: METOPROLOL TARTRATE 50 MG TAB PO SCH ×2 (09:00→17:00)
[2017-09-07] MEDS: DIGOXIN 0.125 MG TAB PO SCH (09:00)
[2017-09-07] MEDS: CLOPIDOGREL BISULFATE 75 MG TAB PO SCH (09:00)
[2017-09-07] MEDS: POLYETHYLENE GLYCOL 3350 17 GM PACK PO SCH ×2 (09:00→21:00)
[2017-09-07] MEDS: INSULIN DETEMIR 100 UNIT/ML PEN SQ SCH (09:00)
[2017-09-07] MEDS: HEPARIN SOD (PORCINE) 5,000 UNIT/ML VIAL SC SCH ×2 (09:00→23:20)
[2017-09-07] MEDS: BALSAM PERU/CASTOR OIL 60 GM OINT...G. TP SCH ×2 (09:00→23:12)
[2017-09-07] MEDS: NYSTATIN 15 GM POWDER UD BTL TOP SCH ×2 (09:00→23:12)
[2017-09-07] MEDS: NIFEDIPINE 10 MG CAP PO SCH ×2 (10:30→23:13)
[2017-09-07] MEDS: ACETAMINOPHEN/ASPIRIN/CAFFEINE 1 EA TAB PO PRN ×2 (12:45→21:20)
[2017-09-07 18:56] LABS: WBC,FECAL (FECAL LACTOFERRIN) NEGATIVE (NEGATIVE)
[2017-09-07] MEDS: ESCITALOPRAM OXALATE 10 MG TAB PO SCH (21:15)
[2017-09-07] MEDS: PHE/SHARK LIVER OIL/COCOA BUT 24 EA SUPP RC SCH (23:12)
[2017-09-08] VITALS (8 sets, daily range): BP systolic 138–163; BP diastolic 63–77
[2017-09-08] MEDS: METRONIDAZOLE 500MG/NS 100ML 100 ML IV SCH ×5 (00:01→23:23)
[2017-09-08] MEDS: PIPERACILLIN/TAZO 2.25 GM 50 ML IV SCH ×3 (06:03→22:12)
[2017-09-08 06:11] LABS: BASOPHILS # (AUTO) 0.1 (0.0-0.1); EOSINOPHILS # (AUTO) 0.2 (0.0-0.4); EOSINOPHILS % 2.9 % (0.0-6.0); HEMATOCRIT 30.3 % (34.2-44.1); HEMOGLOBIN 10.2 g/dL (12.0-16.0); LYMPHOCYTES # (AUTO) 2.6 (1.0-3.2); LYMPHOCYTES % 41.8 % (18.0-39.1); MEAN CORPUSCULAR HEMOGLOBIN 30.4 pg (28-32); MEAN CORPUSCULAR HGB CONC 33.7 g/dL (31-35); MEAN CORPUSCULAR VOLUME 90.2 fL (81-99); MONOCYTES # (AUTO) 0.4 (0.2-0.8); MONOCYTES % 6.9 % (4.4-11.3); NEUTROPHILS % 46.9 % (38.7-80.0); PLATELET COUNT 275 x10e3/uL (140-360); RED BLOOD COUNT 3.36 x10e6/uL (3.6-5.1)
[2017-09-08 06:53] LABS: ANION GAP 12.5 mmol/L (8-16); CALCIUM 9.2 mg/dL (8.4-10.2); CREATININE, SERUM 1.07 mg/dL (0.57-1.11); MAGNESIUM 1.4 MG/DL (1.3-2.1); POTASSIUM 3.5 mmol/L (3.5-5.1)
[2017-09-08] MEDS: INSULIN REGULAR, HUMAN 100 UNIT/1 ML 3ML VIAL SQ SCH ×4 (07:30→21:00)
[2017-09-08] MEDS: ACETAMINOPHEN/ASPIRIN/CAFFEINE 1 EA TAB PO PRN ×2 (07:47→20:20)
[2017-09-08] MEDS: PANTOPRAZOLE SOD 40 MG TABEC PO SCH (09:30)
[2017-09-08] MEDS: ASPIRIN 81 MG CHEW TAB PO SCH (09:30)
[2017-09-08] MEDS: CLOPIDOGREL BISULFATE 75 MG TAB PO SCH (09:30)
[2017-09-08] MEDS: METOPROLOL TARTRATE 50 MG TAB PO SCH ×2 (09:30→18:38)
[2017-09-08] MEDS: DIGOXIN 0.125 MG TAB PO SCH (09:30)
[2017-09-08] MEDS: BALSAM PERU/CASTOR OIL 60 GM OINT...G. TP SCH ×2 (09:31→21:15)
[2017-09-08] MEDS: NIFEDIPINE CR 30 MG TAB PO SCH ×2 (09:31→21:15)
[2017-09-08] MEDS: HEPARIN SOD (PORCINE) 5,000 UNIT/ML VIAL SC SCH ×2 (09:33→21:15)
[2017-09-08] MEDS: INSULIN DETEMIR 100 UNIT/ML PEN SQ SCH (09:56)
[2017-09-08 13:18] LABS: C DIFFICILE TOXIN A&B AMP PROB NEGATIVE (NEGATIVE)
[2017-09-08] MEDS: NYSTATIN 15 GM POWDER UD BTL TOP SCH (21:15)
[2017-09-08] MEDS: ESCITALOPRAM OXALATE 10 MG TAB PO SCH (21:15)
[2017-09-08] MEDS: PHE/SHARK LIVER OIL/COCOA BUT 24 EA SUPP RC SCH (21:15)
[2017-09-08] MEDS ORDERED: SODIUM CHLORIDE 0.9% 100 ML ONE (21:21)
[2017-09-09] VITALS: BP 148/64
[2017-09-09 04:00] VITALS: BP 161/68
[2017-09-09] MEDS: PIPERACILLIN/TAZO 2.25 GM 50 ML IV SCH (05:11)
[2017-09-09] MEDS: ACETAMINOPHEN/ASPIRIN/CAFFEINE 1 EA TAB PO PRN (05:12)
[2017-09-09] MEDS: METRONIDAZOLE 500MG/NS 100ML 100 ML IV SCH ×2 (05:55→12:00)
[2017-09-09 06:51] LABS: BASOPHILS # (AUTO) 0.1 (0.0-0.1); BASOPHILS % 0.9 % (0.0-1.0); EOSINOPHILS # (AUTO) 0.3 (0.0-0.4); EOSINOPHILS % 4.1 % (0.0-6.0); HEMATOCRIT 29.1 % (34.2-44.1); HEMOGLOBIN 9.6 g/dL (12.0-16.0); LYMPHOCYTES # (AUTO) 2.3 (1.0-3.2); LYMPHOCYTES % 29.9 % (18.0-39.1); MEAN CORPUSCULAR VOLUME 90.9 fL (81-99); MONOCYTES # (AUTO) 0.5 (0.2-0.8); MONOCYTES % 6.7 % (4.4-11.3); NEUTROPHILS # (AUTO) 4.5 (2.1-6.9); NEUTROPHILS % 57.9 % (38.7-80.0); PLATELET COUNT 272 x10e3/uL (140-360); RED CELL DISTRIBUTION WIDTH 13.2 % (11.7-14.4)
[2017-09-09 07:12] LABS: ANION GAP 12.3 mmol/L (8-16); CALCIUM 8.9 mg/dL (8.4-10.2); CREATININE, SERUM 0.98 mg/dL (0.57-1.11); POTASSIUM 3.3 mmol/L (3.5-5.1)
[2017-09-09 07:15] VITALS: BP 150/65
[2017-09-09] MEDS: INSULIN REGULAR, HUMAN 100 UNIT/1 ML 3ML VIAL SQ SCH ×2 (07:30→11:55)
[2017-09-09 07:47] VITALS: BP 150/63
[2017-09-09] MEDS: PANTOPRAZOLE SOD 40 MG TABEC PO SCH (08:49)
[2017-09-09] MEDS: INSULIN DETEMIR 100 UNIT/ML PEN SQ SCH (09:00)
[2017-09-09] MEDS: HEPARIN SOD (PORCINE) 5,000 UNIT/ML VIAL SC SCH (09:29)
[2017-09-09] MEDS: ASPIRIN 81 MG CHEW TAB PO SCH (09:30)
[2017-09-09] MEDS: DIGOXIN 0.125 MG TAB PO SCH (09:30)
[2017-09-09] MEDS: NIFEDIPINE CR 30 MG TAB PO SCH (09:31)
[2017-09-09] MEDS: METOPROLOL TARTRATE 50 MG TAB PO SCH (09:31)
[2017-09-09] MEDS: CLOPIDOGREL BISULFATE 75 MG TAB PO SCH (09:31)
[2017-09-09] MEDS: BALSAM PERU/CASTOR OIL 60 GM OINT...G. TP SCH (09:45)
[2017-09-09] MEDS: NYSTATIN 15 GM POWDER UD BTL TOP SCH (09:45)
[2017-09-09] MEDS ORDERED: ceftin PO (10:07)
[2017-09-09] MEDS ORDERED: TYLENOL # 31 EA PO (10:07)
[2017-09-09] MEDS ORDERED: LEXAPRO10 MG PO (10:07)
[2017-09-09] MEDS ORDERED: METRONIDAZOLE500 MG PO (10:07)
[2017-09-09 11:50] VITALS: BP 163/79
--- NOTE | 2017-09-10 00:49 | Discharge Summary ---
ADMISSION DIAGNOSES: 1. Proctitis with sepsis. 2. Acute kidney injury on chronic kidney disease 3. 3. Hypertension with coronary artery disease, status post coronary artery bypass graft and chronic kidney disease 3. 4. Type 2 diabetes with chronic kidney disease. DISCHARGE DIAGNOSES: 1. Proctitis with sepsis. 2. Acute kidney injury on chronic kidney disease 3. 3. Hypertension with coronary artery disease, status post coronary artery bypass graft and chronic kidney disease 3. 4. Type 2 diabetes with chronic kidney disease. 5. Ruled out Clostridium difficile. 6. Hypokalemia. HISTORY: Patient has a history of hypertension, type 2 diabetes, CAD, stroke in 2017 with left-sided hemiparesis. Surgical history of CABG in 2009, cholecystectomy, hysterectomy, and appendectomy. She also has a history of CKD 3 with a baseline GFR in the 50s. HOSPITAL COURSE: An 81-year-old female complained of constipation for the last couple of days. She took a laxative, had some diarrhea, and then had pain with defecation. She comes in complaining of left lower quadrant abdominal pain. On admission, the patient was started with IV Zosyn and Flagyl and clear liquids until she is able to have a bowel movement without pain. As her pain subsided with bowel movements, her diet was increased. Per patient and daughter's request, GI was consulted. After speaking with GI who recommended a colonoscopy, they decided to refuse the colonoscopy on many occasions during the hospital stay. Patient was started on IV fluids and home medicines for hypertension as well as type 2 diabetes. On admission, abdominal x-ray showed nonspecific bowel gas pattern with paucity of bowel gas. CT of the abdomen showed circumferential rectal wall thickening with adjacent fat stranding compatible with proctitis. Urine culture was negative. Per GI, C. diff and stool cultures were obtained. Stool cultures were pending at time of discharge, but C. diff was negative. Patient's diet advanced to regular and having soft bowel movements with no pain. Per GI, patient is safe to discharge home, should be on 1 more week of p.o. antibiotics. At time of discharge, WBC is 7.8, hemoglobin 9.6, hematocrit 29.1, platelet of 272,000. Sodium 138, potassium 3.3, creatinine 0.98, GFR of 54. Patient will be discharged home with family and has PT and OT setup. She was with her daughter and both agreed to discharge. Dictated by Meli Franc, FITTING ROOM ASSOCIATE WHIT VILLAR MD Job#: [id number]
== END 2017-09-09 13:43 | disposition home or self-care (01) | DRG 872 ==
LOC: ER 14:22 → ERHOLD 19:05 → MED/SURG3 20:00
PROVIDERS: ADMIT Internal Medicine; ATTEND Internal Medicine
DX: A41.9 Sepsis, unspecified organism (principal); N17.9 Acute kidney failure, unspecified; I69.354 Hemiplegia and hemiparesis following cerebral infarction affecting left non-dominant side; K62.89 Other specified diseases of anus and rectum; I12.9 Hypertensive chronic kidney disease with stage 1 through stage 4 chronic kidney disease, or unspecified chronic kidney disease; N18.3 Chronic kidney disease, stage 3 (moderate); I25.10 Atherosclerotic heart disease of native coronary artery without angina pectoris; E11.22 Type 2 diabetes mellitus with diabetic chronic kidney disease; F41.9 Anxiety disorder, unspecified; Z95.1 Presence of aortocoronary bypass graft; R51 Headache; E87.6 Hypokalemia
CPT/HCPCS: 36415; 80048; 82948; 83630; 83735; 83880; 85025; 87045; 87177; 87493; 93306; 99284; J1644; J2270; J2543; J7030; J7050; J7799

== ENCOUNTER 2018-02-07 15:51 | Emergency (ER) | payer MEDICARE ==
[~2018-02-07] VITALS: Ht 152.4 cm; Wt 52.2 kg
[~2018-02-07 15:51] MED LIST changes: +LEXAPRO10 MG PO; +METRONIDAZOLE500 MG PO; +TYLENOL # 31 EA PO; +ceftin PO
[2018-02-07 16:24] LABS: BASOPHILS # (AUTO) 0.1 (0.0-0.1); BASOPHILS % 1.1 % (0.0-1.0); EOSINOPHILS # (AUTO) 0.4 (0.0-0.4); HEMATOCRIT 33.6 % (34.2-44.1); HEMOGLOBIN 11.2 g/dL (12.0-16.0); LYMPHOCYTES # (AUTO) 3.4 (1.0-3.2); LYMPHOCYTES % 33.3 % (18.0-39.1); MEAN CORPUSCULAR HEMOGLOBIN 29.8 pg (28-32); MEAN CORPUSCULAR HGB CONC 33.3 g/dL (31-35); MEAN CORPUSCULAR VOLUME 89.4 fL (81-99); MONOCYTES # (AUTO) 0.7 (0.2-0.8); MONOCYTES % 7.1 % (4.4-11.3); NEUTROPHILS # (AUTO) 5.4 (2.1-6.9); NEUTROPHILS % 52.9 % (38.7-80.0); PLATELET COUNT 239 x10e3/uL (140-360); RED BLOOD COUNT 3.76 x10e6/uL (3.6-5.1); RED CELL DISTRIBUTION WIDTH 13.8 % (11.7-14.4)
[2018-02-07 16:28] LABS: INR 0.89; PROTHROMBIN TIME 12.9 seconds (11.9-14.5)
[2018-02-07 16:29] LABS: PARTIAL THROMBOPLASTIN TIME 26.4 seconds (23.8-35.5)
[2018-02-07 16:38] LABS: ALBUMIN 3.4 g/dL (3.5-5.0); ALBUMIN/GLOBULIN RATIO 1.1 (0.8-2.0); ANION GAP 15.8 mmol/L (8-16); CALCIUM 9.2 mg/dL (8.4-10.2); CREATININE, SERUM 1.44 mg/dL (0.57-1.11); MAGNESIUM 1.8 MG/DL (1.3-2.1); POTASSIUM 4.8 mmol/L (3.5-5.1)
[2018-02-07 16:58] LABS: CREATINE KINASE MB 1.2 ng/mL (0-5.0); THYROID STIMULATING HORMONE 1.65 uIU/mL (0.350-4.940)
--- NOTE | 2018-02-07 17:28 | Diagnostic Imaging Report ---
A single frontal view of the chest. HISTORY: Altered mental status, bradycardia COMPARISON: None available. DISCUSSION: Portable technique, limits sensitivity of the exam. Overlying monitoring leads. Tubes/Lines: None Lungs and pleura: Low lung volumes result in bibasilar vascular crowding, accentuation of the pulmonary interstitial markings, central pulmonary vasculature, and the cardiac silhouette. Allowing for these limitations, the findings are as follows: No evidence of a consolidative pneumonia or pulmonary alveolar edema. No definite pleural effusion or pneumothorax is identified. Mild prominence of the pulmonary interstitial markings. Heart and mediastinum: The cardiomediastinal silhouette appears unremarkable. Bones: Diffusely decreased mineralization of the osseous structures limits bone detail. Multiple median sternotomy wires. Other: Metallic clips in the right upper quadrant of the abdomen are compatible with prior cholecystectomy. IMPRESSION: 1. Mild prominence of the pulmonary interstitial markings, likely mild interstitial edema versus mild chronic interstitial lung disease. 2. No consolidative pneumonia or pleural effusion. Signed by: Dr. Adrian Moss D.O., M.M.M. on 02/07/2018 5:24 PM
--- NOTE | 2018-02-07 17:49 | Diagnostic Imaging Report ---
History: Altered earlier today Comparison studies:CT head 09/11/2016 Technique: Axial images were obtained from the skull base to the vertex. Coronal and sagittal images reconstructed from the axial data. Intravenous contrast: None Dose modulation, iterative reconstruction, and/or weight based adjustment of the mA/kV was utilized to reduce the radiation dose to as low as reasonably achievable. Findings: Scalp/skull: No abnormalities. Extra-axial spaces: No masses. No fluid collections. Brain sulci: Mildly prominent. Ventricles: Mild compensatory dilatation. No hydrocephalus. Parenchyma: Few hypodensities in the supratentorial white matter are small vessel ischemic changes. Small chronic lacunar infarct in the left thalamus. No masses, hemorrhage, acute or chronic cortical vascular insults. Sellar/suprasellar region: No abnormalities. Craniocervical junction: Patent foramen magnum. No Chiari one malformation. Incidental findings: Atherosclerotic calcifications in the carotid siphons . Impression: No acute abnormalities. Chronic findings: 1. Mild generalized volume loss. 2. Mild supratentorial white matter small vessel ischemic changes. Signed by: DR Bradley Tony M.D. on 02/07/2018 5:45 PM
[2018-02-07 18:30] LABS: CLARITY,URINE CLEAR (CLEAR); COLOR,URINE YELLOW (YELLOW)
[2018-02-07 18:31] LABS: BILIRUBIN,URINE NEGATIVE (NEGATIVE); KETONES,URINE NEGATIVE (NEGATIVE); LEUKOCYTE ESTERASE ,URINE NEGATIVE (NEGATIVE); NITRITE,URINE NEGATIVE (NEGATIVE); PROTEIN,URINE DIPSTICK 1+ (NEGATIVE); URINE UROBILINOGEN 0.2 mg/dL (0.2 - 1)
[2018-02-07 18:39] LABS: AMORPHOUS SEDIMENT,URINE MANY (FEW); BACTERIA,URINE MODERATE /HPF; EPITHELIAL CELLS,URINE FEW /LPF
== END 2018-02-07 21:21 | disposition home or self-care (01) ==
LOC: ER 15:51
DX: F41.0 Panic disorder [episodic paroxysmal anxiety] (principal); I10 Essential (primary) hypertension; E11.9 Type 2 diabetes mellitus without complications; I25.10 Atherosclerotic heart disease of native coronary artery without angina pectoris; I50.9 Heart failure, unspecified; Z95.1 Presence of aortocoronary bypass graft; F17.210 Nicotine dependence, cigarettes, uncomplicated
CPT/HCPCS: 36415; 51700; 70450; 71045; 80053; 80162; 81001; 82140; 82550; 82553; 83605; 83735; 83880; 84443; 84484; 85025; 85610; 85730; 87040; 87086; 99284

== ENCOUNTER 2018-11-17 18:32 | Inpatient (IN) | payer MEDICARE ==
[~2018-11-17] VITALS: Ht 165.1 cm; Wt 62.1 kg
[2018-11-17] MEDS ORDERED: ONDANSETRON HCL INJ 2MG/ML 2ML 2 MG/ML VIAL IV ONE (18:35)
[2018-11-17] MEDS ORDERED: MORPHINE SULFATE INJ 4 MG/ML INJ 1ML IV PRN ×2 (18:45→21:15)
[2018-11-17 19:01] LABS: BASOPHILS # (AUTO) 0.1 (0.0-0.1); BASOPHILS % 0.7 % (0.0-1.0); EOSINOPHILS # (AUTO) 0.1 (0.0-0.4); EOSINOPHILS % 0.7 % (0.0-6.0); HEMATOCRIT 35.8 % (34.2-44.1); HEMOGLOBIN 11.8 g/dL (12.0-16.0); LYMPHOCYTES # (AUTO) 1.3 (1.0-3.2); LYMPHOCYTES % 7.1 % (18.0-39.1); MEAN CORPUSCULAR HEMOGLOBIN 28.4 pg (28-32); MEAN CORPUSCULAR VOLUME 86.3 fL (81-99); MONOCYTES # (AUTO) 0.7 (0.2-0.8); MONOCYTES % 3.8 % (4.4-11.3); NEUTROPHILS # (AUTO) 15.9 (2.1-6.9); PLATELET COUNT 311 x10e3/uL (140-360); RED BLOOD COUNT 4.15 x10e6/uL (3.6-5.1); RED CELL DISTRIBUTION WIDTH 13.8 % (11.7-14.4)
[2018-11-17 19:25] LABS: ALBUMIN 3.6 g/dL (3.5-5.0); ALBUMIN/GLOBULIN RATIO 0.9 (0.8-2.0); ANION GAP 18.5 mmol/L (8-16); CALCIUM 9.6 mg/dL (8.4-10.2); CREATININE, SERUM 1.77 mg/dL (0.57-1.11); POTASSIUM 4.5 mmol/L (3.5-5.1)
--- NOTE | 2018-11-17 19:40 | NUR ---
URINE SENT TO LAB FOR ANALYSIS
[2018-11-17] MEDS: SODIUM CHLORIDE 0.9% 1000ML 1,000 ML IV SCH ×3 (19:42→23:03)
[2018-11-17 19:53] LABS: BILIRUBIN,URINE NEGATIVE (NEGATIVE); CLARITY,URINE SL CLOUDY (CLEAR); COLOR,URINE YELLOW (YELLOW); KETONES,URINE NEGATIVE (NEGATIVE); LEUKOCYTE ESTERASE ,URINE SMALL (NEGATIVE); NITRITE,URINE NEGATIVE (NEGATIVE); PROTEIN,URINE DIPSTICK 1+ (NEGATIVE); URINE UROBILINOGEN 0.2 mg/dL (0.2 - 1)
[2018-11-17 20:05] LABS: BACTERIA,URINE FEW /HPF; EPITHELIAL CELLS,URINE FEW /LPF
[2018-11-17 20:06] LABS: RENAL EPITHELIAL CELLS,URINE FEW; TRANSITIONAL EPI CELLS,URINE FEW
--- NOTE | 2018-11-17 20:41 | Diagnostic Imaging Report ---
EXAMINATION: CT of the abdomen and pelvis without contrast. TECHNIQUE: Spiral CT images of the abdomen and pelvis were performed from the lung bases to the lesser trochanters. No intravenous contrast was given due to low GFR. Coronal and sagittal reformatted images were obtained. COMPARISON: CT abdomen and pelvis without contrast 09/03/2017 CLINICAL HISTORY:Diffuse abdominal pain and diarrhea for one day DISCUSSION: ABSENCE OF INTRAVENOUS CONTRAST DECREASES SENSITIVITY FOR DETECTION OF FOCAL LESIONS AND VASCULAR PATHOLOGY. ABDOMEN/PELVIS: LOWER THORAX: Mild atelectatic changes in the lower lobes. No consolidation or effusion. Stable cardiomegaly and atherosclerotic calcification of the coronary arteries and thoracic aorta. HEPATOBILIARY: No focal hepatic lesions. Stable mild central intrahepatic biliary ductal prominence and moderate dilation of the common bile duct, which measures 1.3 cm at the didi hepatis. No radiopaque intraluminal filling defects. GALLBLADDER: Cholecystectomy clips. SPLEEN: No splenomegaly. PANCREAS: No focal masses or ductal dilatation. ADRENALS: No adrenal nodules. KIDNEYS/URETERS: No hydronephrosis, stones, or contour abnormalities PELVIC ORGANS/BLADDER: Bladder is unremarkable. Uterus is absent. No adnexal masses. PERITONEUM/RETROPERITONEUM: No free air or fluid. LYMPH NODES: No intra-abdominal,retroperitoneal, pelvic or inguinal lymphadenopathy. VESSELS: Extensive atherosclerotic calcification of the abdominal aorta, aortic branches and iliac vessels. GI TRACT: Moderate dilation of the rectum which measures approximately 8.4 cm in AP diameter and contains hardened stool ball and minimal surrounding stranding. Rest of the bowel shows no dilation. Stomach is unremarkable. BONES AND SOFT TISSUES: No aggressive lytic lesions. Multilevel degenerative disc changes in the lower thoracic and lumbosacral spine with mild leftward curvature. Soft tissues are grossly unremarkable. IMPRESSION: 1. Moderate dilation of the rectum which contains a hardened stool ball and minimal stranding. This may reflect mild stercoral colitis. Correlate for impaction. 2. Otherwise, rest of the bowel shows no dilation or obstruction. No wall thickening. 3. Stable mild central intrahepatic biliary ductal prominence and moderate dilation of the common bile duct, likely reflecting post cholecystectomy status. Signed by: Dr. Phong Sheffield M.D. on 11/17/2018 8:38 PM
[2018-11-17] MEDS ORDERED: ONDANSETRON HCL INJ 2MG/ML 2ML 2 MG/ML VIAL IV PRN (21:00)
[2018-11-17] MEDS ORDERED: MORPHINE SULFATE 2 MG/ML SYR 1ML IV PRN (21:00)
[2018-11-17] MEDS ORDERED: ASPIRIN 81 MG CHEW TAB PO ONE (21:00)
[2018-11-17] MEDS ORDERED: CIPROFLOXACIN 400 MG/D5W 200ML 200 ML IV ONE (21:15)
[2018-11-17] MEDS: METRONIDAZOLE 750MG/NS 150ML 150 ML IV SCH (22:18)
[2018-11-17 22:31] VITALS: BP 135/63
[2018-11-17 22:32] VITALS: BP 135/63
[2018-11-17] MEDS ORDERED: SODIUM CHLORIDE 0.9% 1000ML 1,000 ML ONE (22:42)
[2018-11-17] MEDS: ACETAMINOPHEN 325 MG TAB PO PRN (23:34)
[2018-11-18] VITALS (8 sets, daily range): BP systolic 122–198; BP diastolic 51–79
[2018-11-18] MEDS ORDERED: NIFEDIPINE ER30 M1 PO (04:20)
[2018-11-18] MEDS ORDERED: ATORVASTATIN CA20 MG PO (04:23)
[2018-11-18] MEDS ORDERED: LEXAPRO10 MG PO (04:33)
[2018-11-18] MEDS ORDERED: HUMALOG100 UNIT/3 SQ (05:00)
[2018-11-18] MEDS: METRONIDAZOLE 750MG/NS 150ML 150 ML IV SCH ×3 (05:07→21:45)
[2018-11-18 05:56] LABS: BASOPHILS % 0.3 % (0.0-1.0); EOSINOPHILS # (AUTO) 0.1 (0.0-0.4); EOSINOPHILS % 0.8 % (0.0-6.0); HEMATOCRIT 32.5 % (34.2-44.1); HEMOGLOBIN 10.4 g/dL (12.0-16.0); LYMPHOCYTES # (AUTO) 1.5 (1.0-3.2); LYMPHOCYTES % 13.1 % (18.0-39.1); MEAN CORPUSCULAR HEMOGLOBIN 28.1 pg (28-32); MEAN CORPUSCULAR VOLUME 87.8 fL (81-99); MONOCYTES # (AUTO) 0.7 (0.2-0.8); MONOCYTES % 6.3 % (4.4-11.3); NEUTROPHILS # (AUTO) 9.2 (2.1-6.9); PLATELET COUNT 280 x10e3/uL (140-360); RED CELL DISTRIBUTION WIDTH 13.8 % (11.7-14.4)
[2018-11-18 06:08] LABS: ANION GAP 17.5 mmol/L (8-16); CALCIUM 8.8 mg/dL (8.4-10.2); CREATININE, SERUM 1.52 mg/dL (0.57-1.11); POTASSIUM 4.5 mmol/L (3.5-5.1)
[2018-11-18 06:27] LABS: CREATINE KINASE MB 1.9 ng/mL (0-5.0)
--- NOTE | 2018-11-18 07:06 | NUR ---
Walking rounds done and report received. Patient is awake, alert and able to make needs known. Daughter is at bedside. Patient currently denies any abdominal pain. POC discussed. Patient instructed to call for assistance as needed and verbalized understanding. Bed in lowest position, locked and call barker within reach.
--- NOTE | 2018-11-18 07:14 | NUR ---
H&P: cc: diarrhea HPI: 82.yoF, PCP Dr.R. Puga, developed diarrhea. Some abdominal pain. PMH: HTN, DM2, CAD s/p CABG x2 in 2008, Stroke with residual left weakness, proctitis, sepsis, CKD3 due to DM2, PAF PShx: appendectomy, hysterectomy, cholecystectomy Allergies; see emr Fh/SH; no illicits MEds; see MAR ROS: unreliable v/s revd PE tired appearing anicteric ns1s2 mod bs soft nd; mild tenderness no e/t skin dry n. affect alert. labs/meds; revd A/P; 82yoF Diarrhea CKD3 due to DM2 HTN CAD with hx CABG PAF SIOMARA PLAN IV flagyl f/u c.diff restart home meds ProP; scd/pepcid Misael Maravilla MD, PhD
[2018-11-18] MEDS: ACETAMINOPHEN 325 MG TAB PO PRN (07:31)
[2018-11-18] MEDS: FAMOTIDINE 20 MG/2 ML VIAL IV SCH ×2 (08:52→16:07)
[2018-11-18] MEDS: DIGOXIN 0.125 MG TAB PO SCH (08:52)
[2018-11-18] MEDS: METOPROLOL TARTRATE 50 MG TAB PO SCH ×2 (08:53→16:08)
[2018-11-18] MEDS: CLOPIDOGREL BISULFATE 75 MG TAB PO SCH (08:54)
[2018-11-18] MEDS: SODIUM CHLORIDE 0.9% 1000ML 1,000 ML IV SCH ×3 (09:03→21:45)
[2018-11-18] MEDS ORDERED: DEXTROSE 50% SYRINGE 50 ML IV PRN (11:30)
[2018-11-18] MEDS: INSULIN LISPRO 100 UNIT/1 ML 3ML VIAL SQ SCH ×3 (12:00→20:36)
--- NOTE | 2018-11-18 18:55 | NUR ---
Walking rounds done. call barker within reach.
[2018-11-18] MEDS: ATORVASTATIN 20 MG TAB PO SCH (21:45)
[2018-11-18] MEDS ORDERED: LABETALOL HCL 5 MG/ML 20ML VIAL IV STA (22:59)
[2018-11-19] VITALS (7 sets, daily range): BP systolic 180–213; BP diastolic 72–89
[2018-11-19] MEDS: ACETAMINOPHEN 325 MG TAB PO PRN ×2 (02:23→08:43)
[2018-11-19] MEDS: METRONIDAZOLE 750MG/NS 150ML 150 ML IV SCH ×3 (05:15→21:47)
--- NOTE | 2018-11-19 07:04 | NUR ---
Walking rounds and report received. Patient is resting in bed without any complaints voiced. daughter at the bedside. Patient is awake and alertx2. Daughter stated she did not get for "anxiety pill" and that makes her disoriented at times. Bed in lowest position, locked, bed alarm on and call barker within reach.
[2018-11-19] MEDS: INSULIN LISPRO 100 UNIT/1 ML 3ML VIAL SQ SCH ×4 (08:00→20:48)
[2018-11-19] MEDS: CLOPIDOGREL BISULFATE 75 MG TAB PO SCH (08:42)
[2018-11-19] MEDS: FAMOTIDINE 20 MG/2 ML VIAL IV SCH ×2 (08:42→16:40)
[2018-11-19] MEDS: METOPROLOL TARTRATE 50 MG TAB PO SCH (08:42)
[2018-11-19] MEDS: DIGOXIN 0.125 MG TAB PO SCH (08:42)
--- NOTE | 2018-11-19 10:03 | NUR ---
IM- progress note O/N no events ROS: unreliable v/s revd PE tired appearing anicteric ns1s2 mod bs soft nd; mild tenderness no e/t skin dry n. affect alert. labs/meds; revd A/P; 82yoF Diarrhea CKD3 due to DM2 HTN CAD with hx CABG PAF SIOMARA PLAN IV flagyl f/u c.diff restart home meds ProP; scd/pepcid 11/19 C.diff negative; still some diarrhea; Misael Maravilla MD, PhD
[2018-11-19 10:44] LABS: BASOPHILS # (AUTO) 0.1 (0.0-0.1); BASOPHILS % 1.3 % (0.0-1.0); EOSINOPHILS # (AUTO) 0.4 (0.0-0.4); EOSINOPHILS % 5.5 % (0.0-6.0); HEMATOCRIT 32.5 % (34.2-44.1); HEMOGLOBIN 10.4 g/dL (12.0-16.0); LYMPHOCYTES # (AUTO) 1.3 (1.0-3.2); LYMPHOCYTES % 18.2 % (18.0-39.1); MEAN CORPUSCULAR HEMOGLOBIN 28.3 pg (28-32); MEAN CORPUSCULAR VOLUME 88.3 fL (81-99); MONOCYTES # (AUTO) 0.5 (0.2-0.8); MONOCYTES % 6.5 % (4.4-11.3); NEUTROPHILS # (AUTO) 4.7 (2.1-6.9); NEUTROPHILS % 67.5 % (38.7-80.0); PLATELET COUNT 265 x10e3/uL (140-360); RED BLOOD COUNT 3.68 x10e6/uL (3.6-5.1)
[2018-11-19 10:56] LABS: ANION GAP 13.6 mmol/L (8-16); CALCIUM 9.3 mg/dL (8.4-10.2); CREATININE, SERUM 1.1 mg/dL (0.57-1.11); POTASSIUM 4.6 mmol/L (3.5-5.1)
--- NOTE | 2018-11-19 13:00 | NUR ---
Dr. Taiwo lacy rounds, notified BP is elevated 180/75. wants to continue with current PRN Labetalol.
[2018-11-19] MEDS: LABETALOL HCL 5 MG/ML 20ML VIAL IV PRN ×3 (13:10→22:41)
--- NOTE | 2018-11-19 15:59 | NUR ---
Dr. Maravilla notified BP remains elevated 190/81, received orders to increase Metoprolol to 75mg PO Q8 hours and to give first dose now.
[2018-11-19] MEDS ORDERED: METOPROLOL TARTRATE 50 MG TAB PO NR (16:15)
--- NOTE | 2018-11-19 19:44 | NUR ---
PT IS RESTING IN BED WITH DAUGHTER AT BEDSIDE. RESPIRATION IS EVEN AND UNLABORED, NO DISTRESS NOTED. BED IN THE LOWEST POSITION, LOCKED, BED ALARM ON, AND CALL LIGHT WITHIN REACH. WILL CONTINUE TO MONITOR.
[2018-11-19] MEDS: ESCITALOPRAM OXALATE 10 MG TAB PO SCH (21:00)
[2018-11-19] MEDS: ATORVASTATIN 20 MG TAB PO SCH (21:00)
[2018-11-19] MEDS ORDERED: METOPROLOL TARTRATE 50 MG TAB PO SCH (22:00)
--- NOTE | 2018-11-19 22:46 | NUR ---
PT REFUSE TO OPEN HER MOUTH TO TAKE ANY OF HER MEDICATION. HER DAUGHTER AND I TRY WITHOUT SUCCESS. WILL CONTINUE TO MONITOR.
[2018-11-20] VITALS (9 sets, daily range): BP systolic 107–214; BP diastolic 49–91
[2018-11-20] MEDS: LABETALOL HCL 5 MG/ML 20ML VIAL IV PRN (04:06)
--- NOTE | 2018-11-20 05:37 | NUR ---
IM- progress note O/N no events ROS: unreliable v/s revd PE tired appearing anicteric ns1s2 mod bs soft nd; mild tenderness no e/t skin dry n. affect alert. labs/meds; revd A/P; 82yoF Diarrhea CKD3 due to DM2 HTN CAD with hx CABG PAF SIOMARA PLAN IV flagyl f/u c.diff restart home meds ProP; scd/pepcid 11/19 C.diff negative; still some diarrhea; 11/20 uncontrolled HTN- use labetalol and nifedipine; leukocytosis resolving; check labs; renal fn improving; Misael Maravilla MD, PhD
[2018-11-20] MEDS: METRONIDAZOLE 750MG/NS 150ML 150 ML IV SCH ×3 (05:43→22:43)
[2018-11-20] MEDS ORDERED: CLONIDINE HCL 0.2 MG/24 HR 1 EA PATCH TOP SCH (05:45)
[2018-11-20] MEDS: NIFEDIPINE CR 30 MG TAB PO SCH ×3 (05:45→21:10)
[2018-11-20] MEDS: LABETALOL HCL 100 MG TAB PO SCH ×3 (05:45→21:10)
--- NOTE | 2018-11-20 05:45 | NUR ---
PER DR DENNIS CLONIDINE 0.2MG Q7D PATCH. WILL CONTINUE TO MONITOR.
--- NOTE | 2018-11-20 07:00 | NUR ---
RECEIVED PATIENT IN BEDSIDE REPORT. PATIENT IS SLEEPING IN BED, RESPIRATIONS EVEN AND NON-LABORED, PATIENT EASILY AROUSED, BUT FALLS BACK ASLEEP VERY QUICKLY. DAUGHTER AT BEDSIDE. NO S&S OF DISTRESS NOTED. BED LOCKED IN LOWEST POSITION, SIDE RAILS UPX2, CALL LIGHT IN REACH.
[2018-11-20 07:15] LABS: BASOPHILS # (AUTO) 0.1 (0.0-0.1); BASOPHILS % 0.7 % (0.0-1.0); EOSINOPHILS # (AUTO) 0.1 (0.0-0.4); EOSINOPHILS % 0.9 % (0.0-6.0); HEMATOCRIT 30.3 % (34.2-44.1); LYMPHOCYTES # (AUTO) 1.3 (1.0-3.2); LYMPHOCYTES % 16.9 % (18.0-39.1); MEAN CORPUSCULAR HEMOGLOBIN 28.3 pg (28-32); MEAN CORPUSCULAR VOLUME 85.8 fL (81-99); MONOCYTES # (AUTO) 0.4 (0.2-0.8); MONOCYTES % 5.5 % (4.4-11.3); NEUTROPHILS # (AUTO) 5.8 (2.1-6.9); NEUTROPHILS % 75.2 % (38.7-80.0); PLATELET COUNT 259 x10e3/uL (140-360); RED BLOOD COUNT 3.53 x10e6/uL (3.6-5.1); RED CELL DISTRIBUTION WIDTH 13.8 % (11.7-14.4)
[2018-11-20] MEDS: INSULIN LISPRO 100 UNIT/1 ML 3ML VIAL SQ SCH ×4 (07:30→21:10)
[2018-11-20 07:33] LABS: MAGNESIUM 1.5 MG/DL (1.3-2.1); PHOSPHORUS 2.9 MG/DL (2.3-4.7)
[2018-11-20 07:35] LABS: ANION GAP 12.7 mmol/L (8-16); CALCIUM 8.9 mg/dL (8.4-10.2); CREATININE, SERUM 0.91 mg/dL (0.57-1.11); POTASSIUM 3.7 mmol/L (3.5-5.1)
[2018-11-20] MEDS: FAMOTIDINE 20 MG/2 ML VIAL IV SCH ×2 (08:27→17:26)
[2018-11-20] MEDS: DIGOXIN 0.125 MG TAB PO SCH (08:28)
[2018-11-20] MEDS: CLOPIDOGREL BISULFATE 75 MG TAB PO SCH (08:28)
--- NOTE | 2018-11-20 08:30 | NUR ---
AROUSED PATIENT ENOUGH TO SWALLOW MEDICATIONS, BUT PATIENT TOO SLEEPY TO EAT BREAKFAST. HOLDING INSULIN FOR NOW. WILL ADMINISTER WHEN PATIENT WAKES UP TO EAT.
--- NOTE | 2018-11-20 12:26 | NUR ---
EDUCATED ABOUT IMM, SIGNED, FILED IN CHART, WITH COPY LEFT WITH FAMILY AT BEDSIDE.
--- NOTE | 2018-11-20 13:01 | NUR ---
ASSISTED PATIENT TO BEDSIDE COMMODE. PATIENT WEAK, BUT ABLE TO ASSIST SOME. PATIENT RETURNED TO BED AND MADE COMFORTABLE. BED LOCKED IN LOWEST POSITION, SIDE RAILS UPX2, CALL LIGHT IN REACH.
[2018-11-20] MEDS: ACETAMINOPHEN 325 MG TAB PO PRN ×2 (13:25→23:14)
--- NOTE | 2018-11-20 16:45 | NUR ---
MET W THE PT, DTR AND SISTER AT THE BEDSIDE; PT WAS ASLEEP. CM INFORMED OF HOME HEALTH ORDER. STATES THE MOTHER IS ON SERVICE W [facility]. OFF: [phone] / FAX: [phone]. REFERRAL FAXED TO [facility]; SPOKE Symone DURAN. MADE TO THE INTAKE COOR. AMBER.
[2018-11-20] MEDS: ATORVASTATIN 20 MG TAB PO SCH (21:10)
[2018-11-20] MEDS: ESCITALOPRAM OXALATE 10 MG TAB PO SCH (21:10)
[2018-11-21] VITALS: BP 132/62
[2018-11-21] MEDS ORDERED: MORPHINE SULFATE INJ 4 MG/ML INJ 1ML IV PRN (01:45)
[2018-11-21 04:00] VITALS: BP 126/60
[2018-11-21] MEDS: METRONIDAZOLE 750MG/NS 150ML 150 ML IV SCH ×2 (05:19→14:43)
--- NOTE | 2018-11-21 07:00 | NUR ---
RECEIVED AM REPORT FROM NURSE, MORNING ROUNDS DONE. PT IS RESTING COMFORTABLY, NO S/S OF DISTRESS. CALL LIGHT IS WITHIN REACH, SIDE RAILS ARE UP. DAUGHTER IS AT THE BEDSIDE.
[2018-11-21] MEDS: INSULIN LISPRO 100 UNIT/1 ML 3ML VIAL SQ SCH ×3 (07:30→17:19)
[2018-11-21 07:37] VITALS: BP 133/60
[2018-11-21] MEDS: DIGOXIN 0.125 MG TAB PO SCH (08:32)
[2018-11-21] MEDS: CLOPIDOGREL BISULFATE 75 MG TAB PO SCH (08:32)
[2018-11-21] MEDS: NIFEDIPINE CR 30 MG TAB PO SCH (08:32)
[2018-11-21] MEDS: LABETALOL HCL 100 MG TAB PO SCH (08:33)
--- NOTE | 2018-11-21 08:54 | NUR ---
D/C summary Principal dX: A/P; 82yoF Diarrhea CKD3 due to DM2 HTN CAD with hx CABG PAF SIOMARA PLAN IV flagyl f/u c.diff restart home meds ProP; scd/pepcid 11/19 C.diff negative; still some diarrhea; 11/20 uncontrolled HTN- use labetalol and nifedipine; leukocytosis resolving; check labs; renal fn improving; 11/21 BP better; d/c home with PT and flagyl stable d/c>35mins f/u pcp 1 week Misael Maravilla MD, PhD
[2018-11-21] MEDS: FAMOTIDINE 20 MG/2 ML VIAL IV SCH ×2 (09:00→17:21)
[2018-11-21 10:31] VITALS: BP 133/60
[2018-11-21 11:45] VITALS: BP 125/54
[2018-11-21] MEDS: ACETAMINOPHEN 325 MG TAB PO PRN (14:49)
[2018-11-21 15:23] VITALS: BP 140/57
== END 2018-11-21 17:54 | disposition home or self-care (01) | DRG 872 ==
LOC: ER 18:36 → ERHOLD 22:15 → MED/SURG3 22:25
PROVIDERS: ADMIT Internal Medicine; ATTEND Internal Medicine
DX: A41.9 Sepsis, unspecified organism (principal); N17.9 Acute kidney failure, unspecified; E11.22 Type 2 diabetes mellitus with diabetic chronic kidney disease; I12.9 Hypertensive chronic kidney disease with stage 1 through stage 4 chronic kidney disease, or unspecified chronic kidney disease; N18.3 Chronic kidney disease, stage 3 (moderate); Z79.4 Long term (current) use of insulin; I25.10 Atherosclerotic heart disease of native coronary artery without angina pectoris; Z95.1 Presence of aortocoronary bypass graft; I48.0 Paroxysmal atrial fibrillation; Z79.01 Long term (current) use of anticoagulants; R19.7 Diarrhea, unspecified
CPT/HCPCS: 36415; 74176; 80048; 80053; 81001; 82550; 82553; 82948; 83036; 83690; 83735; 84100; 84484; 85025; 87040; 87086; 87493; 93005; 97139; 99284; J2270; J2405; J7030

== ENCOUNTER 2018-12-11 10:36 | Inpatient (IN) | payer MEDICARE ==
[~2018-12-11] VITALS: Ht 152.4 cm; Wt 47.2 kg
[~2018-12-11 10:36] MED LIST changes: +ATORVASTATIN CA20 MG PO; +HUMALOG100 UNIT/3 SQ; +NIFEDIPINE ER30 M1 PO
[2018-12-11] MEDS ORDERED: DIATRIZOATE MEGL/DIATRIZOA SOD 30 ML BTL PO ONE (11:32)
--- NOTE | 2018-12-11 11:57 | Diagnostic Imaging Report ---
A single frontal view of the chest. HISTORY: Stomach pain COMPARISON: Chest radiograph February 07, 2018 DISCUSSION: Portable technique, limits sensitivity of the exam. Overpenetration further limits the evaluation. Overlying artifacts. Tubes/Lines: None Lungs and pleura: The lungs are well inflated. No evidence of a consolidative pneumonia or pulmonary alveolar edema. No definite pleural effusion or pneumothorax is identified. Heart and mediastinum: The cardiomediastinal silhouette appear(s) unremarkable. Postsurgical changes. Bones and soft tissues: Diffusely decreased mineralization of the osseous structures limits bone detail. Multiple median sternotomy wires. Cholecystectomy clips. IMPRESSION: 1. No acute radiographic abnormality. 2. Diffuse osseous mineralization. Signed by: Dr. Adrian Moss D.O., M.M.M. on 12/11/2018 11:54 AM
[2018-12-11 11:58] LABS: INR 0.99; PARTIAL THROMBOPLASTIN TIME 21.3 seconds (23.8-35.5); PROTHROMBIN TIME 13.6 seconds (11.9-14.5)
[2018-12-11 12:03] LABS: BASOPHILS # (AUTO) 0.1 (0.0-0.1); BASOPHILS % 0.5 % (0.0-1.0); EOSINOPHILS % 0.2 % (0.0-6.0); HEMATOCRIT 35.7 % (34.2-44.1); HEMOGLOBIN 11.4 g/dL (12.0-16.0); LYMPHOCYTES # (AUTO) 1.2 (1.0-3.2); LYMPHOCYTES % 8.9 % (18.0-39.1); MEAN CORPUSCULAR HEMOGLOBIN 28.1 pg (28-32); MEAN CORPUSCULAR HGB CONC 31.9 g/dL (31-35); MEAN CORPUSCULAR VOLUME 88.1 fL (81-99); MONOCYTES # (AUTO) 0.4 (0.2-0.8); MONOCYTES % 3.1 % (4.4-11.3); NEUTROPHILS # (AUTO) 11.2 (2.1-6.9); NEUTROPHILS % 86.7 % (38.7-80.0); PLATELET COUNT 281 x10e3/uL (140-360); RED BLOOD COUNT 4.05 x10e6/uL (3.6-5.1); RED CELL DISTRIBUTION WIDTH 14.4 % (11.7-14.4)
[2018-12-11 12:05] LABS: BILIRUBIN,URINE NEGATIVE (NEGATIVE); CLARITY,URINE CLOUDY (CLEAR); COLOR,URINE YELLOW (YELLOW); KETONES,URINE NEGATIVE (NEGATIVE); LEUKOCYTE ESTERASE ,URINE NEGATIVE (NEGATIVE); NITRITE,URINE NEGATIVE (NEGATIVE); PROTEIN,URINE DIPSTICK 1+ (NEGATIVE); URINE UROBILINOGEN 0.2 mg/dL (0.2 - 1)
[2018-12-11 12:30] LABS: AMORPHOUS SEDIMENT,URINE MANY (FEW); BACTERIA,URINE MODERATE /HPF; EPITHELIAL CELLS,URINE MODERATE /LPF; RBC,URINE 0-5 /HPF (0-5)
[2018-12-11] MEDS ORDERED: METOPROLOL TARTRATE INJ 1 MG/ML VIAL ONE (12:49)
[2018-12-11] MEDS ORDERED: METOPROLOL TARTRATE INJ 1 MG/ML VIAL IV ONE (13:00)
--- NOTE | 2018-12-11 13:33 | Diagnostic Imaging Report ---
EXAM: CT of the abdomen and pelvis WITHOUT contrast HISTORY: Stomach pain, abdominal pain, nausea COMPARISON: CT of the abdomen pelvis November 17, 2018 TECHNIQUE: The abdomen and pelvis were scanned utilizing a multidetector helical scanner. Coronal and sagittal reformats are available. PROTOCOL: Routine IV CONTRAST: None, which limits sensitivity and specificity of evaluation of the soft tissues and vascular structures. ORAL CONTRAST: None, which limits sensitivity and specificity of evaluation of the bowel. RADIATION DOSE: Total DLP: 158.99 mGy*cm Estimated effective dose: (DLP x 0.015 x size factor) Dose modulation, iterative reconstruction, and/or weight based adjustment of the mA/kV was utilized to reduce the radiation dose to as low as reasonably achievable. COMPLICATIONS: None FINDINGS: Artifacts from the overlying upper extremity further limits the evaluation. LOWER THORAX: Cardiomegaly. ABDOMEN: HEPATOBILIARY: No focal hepatic lesions. Interval decrease of the central intrahepatic biliary ductal prominence and moderate dilation of the common bile duct, compatible with reservoir effect status post cholecystectomy. No radiopaque intraluminal filling defects. SPLEEN: No splenomegaly. PANCREAS: No focal masses or ductal dilatation. ADRENALS: No adrenal nodules. KIDNEYS/URETERS: Minimal bilateral hydroureteronephrosis. PELVIC ORGANS/BLADDER: Marked distention of the urinary bladder. PERITONEUM/RETROPERITONEUM: No free air or fluid. LYMPH NODES: No pathologically enlarged lymph nodes. VESSELS: Scattered atherosclerotic vascular calcifications, including the coronary arteries. GI TRACT: Slightly increased dilation of the rectum, containing hardened stool ball and minimal surrounding fat stranding. Radiopaque contrast within the stomach, small bowel, and proximal to mid colon. A few scattered colonic diverticuli, without evidence of acute diverticulitis. BONES AND SOFT TISSUES: Diffusely decreased mineralization of the osseous structures limits bone detail. No acute osseous lesion. IMPRESSION: 1. Slightly increased dilation of the rectum which contains a hardened stool ball and minimal stranding. Once again, this may reflect mild stercoral colitis. Correlate for impaction. 2. Markedly distended urinary bladder and bilateral minimal hydroureteronephrosis, correlate for bladder outlet obstruction. Signed by: Dr. Adrian Moss D.O., M.M.M. on 12/11/2018 1:30 PM
[2018-12-11 13:59] LABS: ALBUMIN 3.6 g/dL (3.5-5.0); ALBUMIN/GLOBULIN RATIO 0.9 (0.8-2.0); ANION GAP 18.5 mmol/L (8-16); CALCIUM 9.6 mg/dL (8.4-10.2); CREATININE, SERUM 1.64 mg/dL (0.57-1.11); POTASSIUM 5.5 mmol/L (3.5-5.1)
[2018-12-11 14:20] LABS: CREATINE KINASE MB 0.8 ng/mL (0-5.0); THYROID STIMULATING HORMONE 1.575 uIU/mL (0.350-4.940)
[2018-12-11] MEDS: LEVOFLOXACIN 500MG/D5W 100ML IV SCH (15:10)
[2018-12-11] MEDS: MORPHINE SULFATE INJ 4 MG/ML INJ 1ML IV PRN ×2 (15:47→23:39)
[2018-12-11] MEDS: ONDANSETRON HCL INJ 2MG/ML 2ML 2 MG/ML VIAL IV PRN (15:47)
[2018-12-11] MEDS ORDERED: SOD POLYSTYRENE SULFONATE SUSP 15 GM/60 ML BTL PO NR (16:00)
[2018-12-11] MEDS: METRONIDAZOLE 500MG/NS 100ML 100 ML IV SCH (16:09)
--- NOTE | 2018-12-11 17:05 | NUR ---
DR. CABRERA HAS AGAIN UPDATED FAMILY RE POC/PENDING ADMIT
--- NOTE | 2018-12-11 17:25 | NUR ---
report called to jessica for this pt. to go to rm [id number]; room is not clean at this time.
[2018-12-11] MEDS ORDERED: DEXTROSE 50% SYRINGE 50 ML IV PRN (17:30)
[2018-12-11 18:13] VITALS: BP 190/79
[2018-12-11 18:40] VITALS: BP 172/76
--- NOTE | 2018-12-11 19:26 | NUR ---
PATIENT RESTING IN BED-IN STABLE CONDITION WITH NO S/S OF RESPIRATORY DISTRESS. NO PAIN VOICED/INDICATED. GRANDDAUGHTER PRESENT IN ROOM. CALL LIGHT IS WITHIN REACH, PATIENT INSTRUCTED TO CALL FOR ASSISTANCE NEEDED. BEDSIDE REPORT GIVEN TO ONCOMING NURSE.
--- NOTE | 2018-12-11 19:29 | NUR ---
CALLED AND SPOKE WITH Lucia HENRIQUEZ REGARDING BP OF 190/79; REASSESSED MANUALLY RESULT 172/76. RECEIVED ORDER FOR ONE TIME NIFEDIPINE 90MG PO ONCE.
--- NOTE | 2018-12-11 19:40 | NUR ---
PT IS RESTING IN BED WITH GRANDDAUGHTER AT BEDSIDE. RESPIRATION IS EVEN AND UNLABORED, NO DISTRESS NOTED. BED IN THE LOWEST POSITION, LOCKED, BED ALARM ON, AND CALL LIGHT WITHIN REACH. WILL CONTINUE TO MONITOR.
[2018-12-11 20:00] VITALS: BP 187/81
[2018-12-11] MEDS ORDERED: NIFEDIPINE CR 30 MG TAB PO ONE (20:25)
--- NOTE | 2018-12-11 20:58 | NUR ---
SPOKE TO DR DENNIS IN REGARD TO PT BP OF 174/[address] DENNIS LABETALOL 5MG IV Q2H PRN FOR SBP 160-180. WILL CONTINUE TO MONITOR.
[2018-12-11] MEDS: INSULIN REGULAR, HUMAN 100 UNIT/1 ML 3ML VIAL SQ SCH (21:00)
[2018-12-11] MEDS ORDERED: LABETALOL HCL 5 MG/ML 20ML VIAL IV PRN (21:15)
[2018-12-11 21:50] VITALS: BP 187/81
[2018-12-11 22:02] VITALS: BP 187/81
[2018-12-12] VITALS (9 sets, daily range): BP systolic 95–174; BP diastolic 46–77
[2018-12-12] MEDS ORDERED: SODIUM CHLORIDE 0.9% 250ML 250 ML ONE (00:39)
[2018-12-12] MEDS: METRONIDAZOLE 500MG/NS 100ML 100 ML IV SCH ×4 (00:42→17:11)
[2018-12-12 06:14] LABS: BASOPHILS % 0.3 % (0.0-1.0); EOSINOPHILS # (AUTO) 0.1 (0.0-0.4); EOSINOPHILS % 0.6 % (0.0-6.0); HEMATOCRIT 34.9 % (34.2-44.1); HEMOGLOBIN 11.3 g/dL (12.0-16.0); LYMPHOCYTES # (AUTO) 1.3 (1.0-3.2); LYMPHOCYTES % 10.6 % (18.0-39.1); MEAN CORPUSCULAR HEMOGLOBIN 28.3 pg (28-32); MEAN CORPUSCULAR HGB CONC 32.4 g/dL (31-35); MEAN CORPUSCULAR VOLUME 87.5 fL (81-99); MONOCYTES # (AUTO) 0.8 (0.2-0.8); MONOCYTES % 6.6 % (4.4-11.3); NEUTROPHILS # (AUTO) 9.8 (2.1-6.9); NEUTROPHILS % 81.6 % (38.7-80.0); PLATELET COUNT 308 x10e3/uL (140-360); RED BLOOD COUNT 3.99 x10e6/uL (3.6-5.1); RED CELL DISTRIBUTION WIDTH 14.4 % (11.7-14.4)
[2018-12-12 06:40] LABS: ALBUMIN 3.5 g/dL (3.5-5.0); ALBUMIN/GLOBULIN RATIO 0.9 (0.8-2.0); ANION GAP 16.2 mmol/L (8-16); CREATININE, SERUM 1.68 mg/dL (0.57-1.11); POTASSIUM 5.2 mmol/L (3.5-5.1)
--- NOTE | 2018-12-12 07:20 | NUR ---
PATIENT IN STABLE CONDITION WITH NO S/S OF RESPIRATORY DISTRESS. NO PAIN VOICED. DAUGHTER PRESENT IN ROOM. AIR PUMP APPLIED. CALL LIGHT IS WITHIN REACH, PATIENT INSTRUCTED TO CALL FOR ASSISTANCE NEEDED.
--- NOTE | 2018-12-12 07:27 | NUR ---
H&P: cc: diarrhea HPI: 82.yoF, PCP Dr.R. Puga, recently treated for diarhea, now constipation, and periods of diarrhea; PMH: HTN, DM2, CAD s/p CABG x2 in 2008, Stroke with residual left weakness, proctitis, sepsis, CKD3 due to DM2, PAF PShx: appendectomy, hysterectomy, cholecystectomy Allergies; see emr Fh/SH; no illicits MEds; see MAR ROS: unreliable v/s revd PE tired appearing anicteric ns1s2 mod bs soft nd; mild tenderness no e/t skin dry n. affect alert. labs/meds; revd A/P; 82yoF Diarrhea/Colitis B/L Hydrouterolithiasis/Bladder outlet obstruction UTI CKD3 due to DM2 HTN CAD with hx CABG PAF LVH PLAN IV flagyl/levaquin; Cdiff negative on last admission; CLD; GI eval Urology eval restart home meds Hba1c 8.4 on 11/18. check lipids. ProP; scd/pepcid Misael Maravilla MD, PhD
[2018-12-12] MEDS: INSULIN REGULAR, HUMAN 100 UNIT/1 ML 3ML VIAL SQ SCH ×4 (07:30→20:49)
[2018-12-12 07:41] LABS: CHOL/HDL RATIO 5.5 (3.0-3.6)
[2018-12-12] MEDS: NIFEDIPINE CR 30 MG TAB PO SCH (08:35)
[2018-12-12] MEDS: CLOPIDOGREL BISULFATE 75 MG TAB PO SCH (08:35)
[2018-12-12] MEDS: METOPROLOL TARTRATE 50 MG TAB PO SCH ×2 (08:35→17:00)
[2018-12-12] MEDS: LISINOPRIL 10 MG TAB PO SCH (08:35)
[2018-12-12] MEDS: ASPIRIN 81 MG CHEW TAB PO SCH (08:36)
[2018-12-12] MEDS: LORATADINE 10 MG TAB PO SCH (08:36)
--- NOTE | 2018-12-12 10:00 | NUR ---
18 Fr Abbott inserted on female patient post void. Balloon amount 10 mL. Locked onto left thigh. Patent and draining well, bag hung below bladder. 800 mL of urine noted upon insertion.
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
[2018-12-12] MEDS: LEVOFLOXACIN 500MG/D5W 100ML IV SCH (14:12)
--- NOTE | 2018-12-12 14:29 | NUR ---
Nutrition Intervention Note RD Recommendation(s) for Physician: - When feasible, ADAT to goal of 1500 ADA, GI Soft diet. Add low K restriction pending lab trend. - Recommend Glucerna Shake BID when diet advanced. - BG and insulin management per MD. Plan of Care: RD following, monitoring for tolerance and adequacy Nutrition reason for involvement: Nutrition Risk Trigger- MST2 RD Assessment 12/12: 82 YOF admitted for suspected colitis exacerbation and found to have hydronephrosis. Pt seen today per MST screen. 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 Pt's daughter reports pt does consume hot sauce frequently which exacerbates colitis symptoms at times. Daughter reports tolerating CL diet, eating 50% of meals currently 2/2 does not like some of the items. No wt loss reported. All questions and concerns addressed at time of visit. Pt discussed during am rounds. Will monitor and continue to follow. Principal Problems/Diagnoses: colitis, hydronephrosis PMH: fecal impaction, CKD3, HTN, DM2, CAD, CABGx3, cholecystectomy GI: LBM 12/12 Skin: intact Labs: 12/12: K 5.2, BUN 29, Cr 1.68, Gluc 240, elevated LFTs Meds: insulin, morphine, zofran, lipitor Ht: 60 in Wt: 104 lb BMI: 20.3 IBW: 100 lb Malnutrition Evaluation (date of eval) The patient does not meet criteria for a specified degree of malnutrition at this time. Will re-evaluate at follow-up as appropriate. Nutrition Prescription (Diet Order): CL diet Estimated Nutritional Needs: 4087-4597 calories/day (25-30 kcal/kg CBW) 38-58 g protein/day (0.8-1.2 g pro/kg CBW) Diet Adequacy: Not meeting calorie needs, Not meeting protein needs Diet Education Needs Assessment: Diet education not indicated, patient on temporary/transition diet. Nutrition Care Level: Low Nutrition Diagnosis: Inadequate energy and protein intake related to current medical condition as evidenced by currently on CL diet and not meeting needs. Goal: Patient will meet 75-100% of estimated needs by follow up Progress: N/A Interventions: Fiber, fluid, CHO modified diet, Commercial beverage, Recommended Modifications, Collaboration with other providers Monitoring/Evaluation: Total energy intake, Total protein intake, Modified diet, Liquid supplement Signed: Tory Mercedes RD, LD, [facility]
--- NOTE | 2018-12-12 15:10 | NUR ---
Visit made by the Spiritual Care Department Pastoral Visitor, Corina Gay. PV provided pastoral presence, prayer, hospitality, and supportive listening. Pastoral Visitor informed pt/family of the scope of Registered Account Administrator Services and availability. QING MOODY Freight Router Spiritual Care Department O: [phone] Pager: [phone] ([phone] number calling from)
--- NOTE | 2018-12-12 16:45 | NUR ---
CALLED AND SPOKE WITH DR. DENNIS REGARDING PATIENT'S BP OF 100/50 AND SCHEDULED METOPROLOL. ORDER TO HOLD METOPROLOL OF SBP<120. SPOKE TO DR. DENNIS REGARDING POTASSIUM OF 5.2; ORDER TO OBTAIN ANOTHER POTASSIUM LAB AT 1999 TODAY.
--- NOTE | 2018-12-12 19:16 | NUR ---
BED ALARM ON. DAUGHTER PRESENT IN THE ROOM.
--- NOTE | 2018-12-12 19:16 | NUR ---
PATIENT IN STABLE CONDITION WITH NO S/S OF RESPIRATORY DISTRESS. NO PAIN VOICED. PARTIDA APPLIED AND INTACT. DAUGHTER PRESENT IN ROOM. CALL LIGHT IS WITHIN REACH, PATIENT INSTRUCTED TO CALL FOR ASSISTANCE NEEDED. BEDSIDE REPORT GIVEN TO ONCOMING NURSE.
[2018-12-12] MEDS: ESCITALOPRAM OXALATE 10 MG TAB PO SCH (20:49)
[2018-12-12] MEDS: ATORVASTATIN 20 MG TAB PO SCH (20:49)
[2018-12-12] MEDS ORDERED: ACETAMINOPHEN 325 MG TAB PO PRN (21:45)
[2018-12-12] MEDS ORDERED: BISACODYL 5 MG TAB EC PO ONE ×2 (23:00→23:30)
[2018-12-12] MEDS: MORPHINE SULFATE INJ 4 MG/ML INJ 1ML IV PRN (23:37)
[2018-12-13] VITALS (7 sets, daily range): BP systolic 104–138; BP diastolic 52–65
[2018-12-13] MEDS ORDERED: CITRATE OF MAGNESIA 300ML BOTTLE PO ONE
[2018-12-13] MEDS ORDERED: BISACODYL 5 MG TAB EC PO ONE ×3 (00:30→01:00)
[2018-12-13] MEDS: METRONIDAZOLE 500MG/NS 100ML 100 ML IV SCH ×4 (00:31→17:24)
[2018-12-13] MEDS: ONDANSETRON HCL INJ 2MG/ML 2ML 2 MG/ML VIAL IV PRN ×2 (01:04→07:41)
--- NOTE | 2018-12-13 06:28 | NUR ---
IM- progress note O/N no events ROS: unreliable v/s revd PE tired appearing anicteric ns1s2 mod bs soft nd; mild tenderness no e/t skin dry n. affect alert. labs/meds; revd A/P; 82yoF Diarrhea/Colitis B/L Hydrouterolithiasis/Bladder outlet obstruction UTI CKD3 due to DM2 HTN CAD with hx CABG PAF LVH PLAN IV flagyl/levaquin; Cdiff negative on last admission; CLD; GI eval Urology eval restart home meds Hba1c 8.4 on 11/18. check lipids. ProP; scd/pepcid 12/13 check renal fn. Misael Maravilla MD, PhD
[2018-12-13] MEDS: INSULIN REGULAR, HUMAN 100 UNIT/1 ML 3ML VIAL SQ SCH ×4 (07:30→21:00)
[2018-12-13] MEDS: MORPHINE SULFATE INJ 4 MG/ML INJ 1ML IV PRN (07:42)
[2018-12-13 07:48] LABS: BASOPHILS # (AUTO) 0.1 (0.0-0.1); BASOPHILS % 0.5 % (0.0-1.0); EOSINOPHILS # (AUTO) 0.1 (0.0-0.4); EOSINOPHILS % 0.9 % (0.0-6.0); HEMATOCRIT 33.1 % (34.2-44.1); HEMOGLOBIN 10.4 g/dL (12.0-16.0); LYMPHOCYTES # (AUTO) 1.4 (1.0-3.2); LYMPHOCYTES % 10.8 % (18.0-39.1); MEAN CORPUSCULAR HEMOGLOBIN 28.3 pg (28-32); MEAN CORPUSCULAR HGB CONC 31.4 g/dL (31-35); MEAN CORPUSCULAR VOLUME 89.9 fL (81-99); MONOCYTES # (AUTO) 0.7 (0.2-0.8); MONOCYTES % 5.5 % (4.4-11.3); NEUTROPHILS # (AUTO) 10.6 (2.1-6.9); NEUTROPHILS % 81.5 % (38.7-80.0); PLATELET COUNT 237 x10e3/uL (140-360); RED BLOOD COUNT 3.68 x10e6/uL (3.6-5.1); RED CELL DISTRIBUTION WIDTH 14.6 % (11.7-14.4)
[2018-12-13 07:57] LABS: ANION GAP 14.9 mmol/L (8-16); CALCIUM 9.7 mg/dL (8.4-10.2); CREATININE, SERUM 1.44 mg/dL (0.57-1.11); POTASSIUM 3.9 mmol/L (3.5-5.1)
[2018-12-13] MEDS: METOPROLOL TARTRATE 50 MG TAB PO SCH ×2 (09:00→17:00)
[2018-12-13] MEDS: CLOPIDOGREL BISULFATE 75 MG TAB PO SCH (09:00)
[2018-12-13] MEDS: LORATADINE 10 MG TAB PO SCH (09:00)
[2018-12-13] MEDS: NIFEDIPINE CR 30 MG TAB PO SCH (09:00)
[2018-12-13] MEDS: ASPIRIN 81 MG CHEW TAB PO SCH (09:00)
[2018-12-13] MEDS: LISINOPRIL 10 MG TAB PO SCH (09:00)
[2018-12-13] MEDS: GABAPENTIN 400 MG CAP PO SCH ×3 (09:00→20:00)
[2018-12-13] MEDS ORDERED: PHE/SHARK LIVER OIL/COCOA BUT 24 EA SUPP RC ONE (14:00)
[2018-12-13] MEDS: LEVOFLOXACIN 500MG/D5W 100ML IV SCH (15:57)
--- NOTE | 2018-12-13 19:36 | NUR ---
Received change of shift report from AM nurse. Walking rounds completed.
[2018-12-13] MEDS: ESCITALOPRAM OXALATE 10 MG TAB PO SCH (20:00)
[2018-12-13] MEDS: ATORVASTATIN 20 MG TAB PO SCH (20:00)
--- NOTE | 2018-12-13 22:16 | NUR ---
Patient AAOx2-3. Daughter at bedside. Patient c/o of pain =5. Given pain and nausea meds as ordered by . Abbott to bedside drainage. Edelmira color urine noted. Patient has had 5 diarrhea episodes. BS at 191 no insulin given due to patient not eatting. Continue monitor for changes in patients condition.Patient repositioned in bed [id number] and PRN. Continue monitor.
[2018-12-14] VITALS (8 sets, daily range): BP systolic 104–137; BP diastolic 47–56
--- NOTE | 2018-12-14 00:22 | NUR ---
Dr Lloyd on the floor to see patient. Orders received and completed.
[2018-12-14] MEDS ORDERED: SODIUM CHLORIDE 0.9% 250ML 250 ML IV ONE (01:15)
[2018-12-14] MEDS ORDERED: SODIUM CHLORIDE 0.9% 250ML 250 ML ONE ×2 (01:16→10:43)
[2018-12-14] MEDS: LACTATED RINGER'S 1,000 ML IV SCH (02:30)
[2018-12-14] MEDS: METRONIDAZOLE 500MG/NS 100ML 100 ML IV SCH ×4 (05:20→18:05)
--- NOTE | 2018-12-14 06:19 | NUR ---
IM- progress note O/N no events ROS: unreliable v/s revd PE tired appearing anicteric ns1s2 mod bs soft nd; mild tenderness no e/t skin dry n. affect alert. labs/meds; revd A/P; 82yoF Diarrhea/Colitis B/L Hydrouterolithiasis/Bladder outlet obstruction UTI CKD3 due to DM2 HTN CAD with hx CABG PAF LV[facility] PLAN IV flagyl/levaquin; Cdiff negative on last admission; CLD; GI eval Urology eval restart home meds Hba1c 8.4 on 11/18. check lipids. ProP; scd/pepcid 12/13 check renal fn. 12/14 ESBL E.coli UTI- change levaquin to merrem; IJ placement for abx; SNF eval. Misael Maravilla MD, PhD
[2018-12-14] MEDS: MEROPENEM 500MG/ NS 50ML 50 ML IV SCH ×3 (06:30→21:26)
--- NOTE | 2018-12-14 07:20 | NUR ---
PATIENT IN BED RESTING WITH EYES CLOSED, NO DISTRESS NOTED. O2 IN PLACE VIA N/C, HEEL PROTECTOR IN PLACE. BED IN LOWER POSITION, CALL LIGHT AT REACH.
[2018-12-14] MEDS: INSULIN REGULAR, HUMAN 100 UNIT/1 ML 3ML VIAL SQ SCH ×4 (07:30→21:00)
[2018-12-14] MEDS: LISINOPRIL 10 MG TAB PO SCH (09:00)
[2018-12-14] MEDS: NIFEDIPINE CR 30 MG TAB PO SCH (09:00)
[2018-12-14] MEDS: METOPROLOL TARTRATE 50 MG TAB PO SCH ×2 (09:00→17:00)
[2018-12-14] MEDS: LORATADINE 10 MG TAB PO SCH (09:10)
[2018-12-14] MEDS: GABAPENTIN 400 MG CAP PO SCH (09:10)
[2018-12-14] MEDS: CLOPIDOGREL BISULFATE 75 MG TAB PO SCH (09:10)
[2018-12-14] MEDS: ASPIRIN 81 MG CHEW TAB PO SCH (09:10)
[2018-12-14] MEDS ORDERED: LIDOCAINE HCL 1% LOCAL INJ 20 ML VIAL ONE (10:43)
--- NOTE | 2018-12-14 11:46 | NUR ---
PATIENT ASSISTED WITH DIAPER CHANGE, HAD A LARGE BM. IN BED WITH CALL LIGHT AT REACH.
--- NOTE | 2018-12-14 12:20 | NUR ---
PATIENT OFF UNIT TO RADIOLOGY.
--- NOTE | 2018-12-14 12:39 | NUR ---
SPOKE WITH PATIENT ABOUT SNF ORDER, GAVE OPTIONS IN NETWORK, PT DAUGHTER CALLED BROTHER RITU AND HE STATES HAS BEEN TO [facility] AND GAVE PERMISSION FOR HIS [facility] CALLED REP SHE WILL COME [employer]IST PACKET.
--- NOTE | 2018-12-14 13:15 | NUR ---
PATIENT BACK TO UNIT FROM RADIOLOGY. CENTRAL LINE TO RIGHT UPPER CHEST, DRESSING WITH SMALL AMOUNT OF BLOOD. IV FLUID INFUSING ORDERED. BED IN LOWER POSITION, CALL LIGHT AT REACH.
--- NOTE | 2018-12-14 14:28 | Diagnostic Imaging Report ---
PROCEDURE: Tunneled central venous catheter placement Procedural Personnel Attending physician(s): Mil Dukes MD Fellow physician(s): None Resident physician(s): None Advanced practice provider(s): None Pre-procedure diagnosis: Bacteremia Post-procedure diagnosis: Same Indication: Other- administration of penitentiary IV antibiotics. Additional clinical history: None Complications: No immediate complications. IMPRESSION: Insertion of right-sided double lumen tunneled Proline catheter, with tip in the expected location of the cavoatrial junction. Plan: The catheter may be used immediately. PROCEDURE SUMMARY: - Venous access with ultrasound guidance - Tunneled central venous catheter insertion with fluoroscopic guidance - Additional procedure(s): None PROCEDURE DETAILS: Pre-procedure Consent: Informed consent for the procedure including risks, benefits and alternatives was obtained and time-out was performed prior to the procedure. Preparation (MIPS): The site was prepared and draped using all elements of maximal sterile barrier technique including sterile gloves, sterile gown, cap, mask, large sterile sheet, sterile ultrasound probe cover, hand hygiene and cutaneous antisepsis with 2% chlorhexidine. Medical reason for site preparation exception (MIPS): Not applicable Anesthesia/sedation Level of anesthesia/sedation: No sedation Anesthesia/sedation administered by: Independent trained observer under attending supervision with continuous monitoring of the patient?s level of consciousness and physiologic status Access Local anesthesia was administered. The vessel was sonographically evaluated and determined to be patent. Real time ultrasound was used to visualize needle entry into the vessel and a permanent image was stored. Vein accessed: Internal jugular vein Access technique: Micropuncture set with 21 gauge needle Catheter placement An incision was made near the venous access site and the catheter was tunneled subcutaneously to the venous access site and trimmed to appropriate length. The catheter was advanced via a peel-away sheath into the vein under fluoroscopic guidance. Catheter tip location was fluoroscopically verified and a permanent image was stored. Catheter placed: 6Fr double lumen Proline, power injectable Catheter size ([place]an): 6Fr Catheter flush: Normal saline Closure A sterile dressing was applied. Access site closure technique: Tissue adhesive Catheter securement technique: Non-absorbable suture Contrast Contrast agent: None Radiation Dose Fluoroscopy time (minutes): 0. Reference air kerma (mGy): 2.57 Kerma area product (Gy-cm2): 0.501 Additional Details Additional description of procedure: None Equipment details: None Specimens removed: None Estimated blood loss (mL): Less than 10 Standardized report: [email or web address] Attestation Signer name: Mil Dukes MD I attest that I was present for the entire procedure. I reviewed the stored images and agree with the report as written. Signed by: Mil Dukes MD on 12/14/2018 2:25 PM
--- NOTE | 2018-12-14 14:41 | NUR ---
COMPLETED RTF AND PASRR, FILED IN CHART PACKET AND FAXED TO FACILITY, WILL PUT WITH PACKET AT NURSES STATION TO WAITING ON AUTH FOR ROOM AND DOCTOR ASSIGNMENT AT [facility]
[2018-12-14] MEDS: GABAPENTIN 100 MG CAP PO SCH ×2 (15:38→20:08)
--- NOTE | 2018-12-14 19:26 | NUR ---
Received change of shift report from AM nurse. Walking rounds completed. Patient c/o foot pain and needing diaper change. Will complete. Continue monitor.
[2018-12-14] MEDS: ONDANSETRON HCL INJ 2MG/ML 2ML 2 MG/ML VIAL IV PRN (19:41)
[2018-12-14] MEDS: MORPHINE SULFATE INJ 4 MG/ML INJ 1ML IV PRN (19:41)
[2018-12-14] MEDS: ESCITALOPRAM OXALATE 10 MG TAB PO SCH (20:07)
[2018-12-14] MEDS: ATORVASTATIN 20 MG TAB PO SCH (20:08)
--- NOTE | 2018-12-14 22:01 | NUR ---
Patient c/o pain to feet and abd. Given patient schul. meds and pain meds.
[2018-12-15] MEDS: LACTATED RINGER'S 1,000 ML IV SCH (00:22)
--- NOTE | 2018-12-15 00:45 | NUR ---
Dr Lloyd on the floor to see patient. Will f/u on any new orders.
[2018-12-15 03:46] VITALS: BP 168/70
--- NOTE | 2018-12-15 04:04 | NUR ---
No changes noted in patient condition. Resting quitly at this time. Continue monitor.
[2018-12-15] MEDS: METRONIDAZOLE 500MG/NS 100ML 100 ML IV SCH ×3 (05:27→11:34)
[2018-12-15] MEDS: MEROPENEM 500MG/ NS 50ML 50 ML IV SCH ×2 (05:27→14:33)
--- NOTE | 2018-12-15 06:03 | NUR ---
D/C summary Principal Dx: Diarrhea/Colitis B/L Hydrouterolithiasis/Bladder outlet obstruction UTI with ESBL E.coli Secondary Dx: CKD3 due to DM2 HTN CAD with hx CABG PAF LV[facility] PLAN IV flagyl/levaquin; Cdiff negative on last admission; CLD; GI eval Urology eval restart home meds Hba1c 8.4 on 11/18. check lipids. ProP; scd/pepcid 12/13 check renal fn. 12/14 ESBL E.coli UTI- change levaquin to merrem; IJ placement for abx; SNF eval. 12/15 adjust BP meds; f/u labs; d/c to SNF f/u pcp 1 week stable d/c>35mins Misael Maravilla MD, PhD
[2018-12-15 06:10] LABS: BASOPHILS % 0.3 % (0.0-1.0); EOSINOPHILS # (AUTO) 0.1 (0.0-0.4); EOSINOPHILS % 0.5 % (0.0-6.0); HEMATOCRIT 28.9 % (34.2-44.1); HEMOGLOBIN 9.2 g/dL (12.0-16.0); LYMPHOCYTES # (AUTO) 1.3 (1.0-3.2); LYMPHOCYTES % 10.5 % (18.0-39.1); MEAN CORPUSCULAR HEMOGLOBIN 27.8 pg (28-32); MEAN CORPUSCULAR HGB CONC 31.8 g/dL (31-35); MEAN CORPUSCULAR VOLUME 87.3 fL (81-99); MONOCYTES # (AUTO) 0.8 (0.2-0.8); MONOCYTES % 6.7 % (4.4-11.3); NEUTROPHILS # (AUTO) 9.9 (2.1-6.9); NEUTROPHILS % 81.3 % (38.7-80.0); PLATELET COUNT 238 x10e3/uL (140-360); RED BLOOD COUNT 3.31 x10e6/uL (3.6-5.1); RED CELL DISTRIBUTION WIDTH 14.6 % (11.7-14.4)
[2018-12-15] MEDS: ONDANSETRON HCL INJ 2MG/ML 2ML 2 MG/ML VIAL IV PRN (06:11)
[2018-12-15] MEDS: MORPHINE SULFATE INJ 4 MG/ML INJ 1ML IV PRN ×2 (06:12→13:16)
[2018-12-15 06:33] LABS: ALBUMIN 2.5 g/dL (3.5-5.0); ALBUMIN/GLOBULIN RATIO 0.8 (0.8-2.0); CALCIUM 8.7 mg/dL (8.4-10.2); CREATININE, SERUM 1.25 mg/dL (0.57-1.11)
--- NOTE | 2018-12-15 07:00 | NUR ---
RECEIVED BEDSIDE SHIFT REPORT FROM NIGHT RN MARCOS. PT DENIES NEEDS AT THIS TIME.
[2018-12-15] MEDS: INSULIN REGULAR, HUMAN 100 UNIT/1 ML 3ML VIAL SQ SCH ×3 (07:30→17:14)
[2018-12-15 07:33] VITALS: BP 152/68
[2018-12-15] MEDS: LORATADINE 10 MG TAB PO SCH (08:32)
[2018-12-15] MEDS: ASPIRIN 81 MG CHEW TAB PO SCH (08:32)
[2018-12-15] MEDS: NIFEDIPINE CR 30 MG TAB PO SCH (08:33)
[2018-12-15] MEDS: GABAPENTIN 100 MG CAP PO SCH ×2 (08:33→14:33)
[2018-12-15] MEDS: CLOPIDOGREL BISULFATE 75 MG TAB PO SCH (08:33)
[2018-12-15 09:00] VITALS: BP 152/68
[2018-12-15] MEDS ORDERED: LISINOPRIL 20 MG TAB PO SCH (09:00)
[2018-12-15] MEDS ORDERED: METOPROLOL TARTRATE 50 MG TAB PO SCH (09:00)
[2018-12-15 11:13] VITALS: BP 126/56
--- NOTE | 2018-12-15 11:30 | NUR ---
EDUCATED ABOUT IMM, SIGNED, FILED IN CHART, WITH COPY LEFT WITH FAMILY AT BEDSIDE.
--- NOTE | 2018-12-15 13:12 | NUR ---
[facility] FACILITY DISCHARGE INFORMATION PATIENT HAS BEEN ACCEPTED TO: NAME: [facility] ADDRESS:[id number] ACCEPTING [employer] A[employer]LYST:LYNDA REDD ACCEPTING MD: SONNY ROOM: 123 NURSE CALL REPORT TO: [phone] IMM SIGNED AND OBTAINED (if applicable): YES THE FOLLOWING DOCUMENTS MUST ACCOMPANY PATIENT FOR TRANSFER: COPIED CHART: CLINICALS AND PASRR
[2018-12-15 15:25] VITALS: BP 105/52
== END 2018-12-15 17:29 | DRG 392 ==
LOC: ER 10:36 → ERHOLD 16:08 → MED/SURG3 18:03 → MED/SURG 12-12 17:18 → MED/SURG3 12-12 17:19
PROVIDERS: ADMIT Internal Medicine; ATTEND Internal Medicine
PROC: 02HV33Z Insertion of Infusion Device into Superior Vena Cava, Percutaneous Approach (ICD-10-PCS; principal; 2018-12-14)
PROC: B548ZZA Ultrasonography of Superior Vena Cava, Guidance (ICD-10-PCS; 2018-12-14)
PROC: 0JH63XZ Insertion of Tunneled Vascular Access Device into Chest Subcutaneous Tissue and Fascia, Percutaneous Approach (ICD-10-PCS; 2018-12-14)
DX: A09 Infectious gastroenteritis and colitis, unspecified (principal); I69.354 Hemiplegia and hemiparesis following cerebral infarction affecting left non-dominant side; I13.0 Hypertensive heart and chronic kidney disease with heart failure and stage 1 through stage 4 chronic kidney disease, or unspecified chronic kidney disease; N13.30 Unspecified hydronephrosis; N39.0 Urinary tract infection, site not specified; K59.39 Other megacolon; K63.3 Ulcer of intestine; Z74.01 Bed confinement status; Z79.4 Long term (current) use of insulin; Z96.41 Presence of insulin pump (external) (internal); E11.22 Type 2 diabetes mellitus with diabetic chronic kidney disease; I50.9 Heart failure, unspecified; Z95.1 Presence of aortocoronary bypass graft; I25.10 Atherosclerotic heart disease of native coronary artery without angina pectoris; Z90.49 Acquired absence of other specified parts of digestive tract; Z88.5 Allergy status to narcotic agent; Z88.8 Allergy status to other drugs, medicaments and biological substances; N39.46 Mixed incontinence; Z87.440 Personal history of urinary (tract) infections; R33.9 Retention of urine, unspecified; E87.5 Hyperkalemia; D64.9 Anemia, unspecified; Z87.442 Personal history of urinary calculi; K56.41 Fecal impaction; N18.3 Chronic kidney disease, stage 3 (moderate); I48.0 Paroxysmal atrial fibrillation; B96.20 Unspecified Escherichia coli [E. coli] as the cause of diseases classified elsewhere; Z16.12 Extended spectrum beta lactamase (ESBL) resistance
CPT/HCPCS: 36415; 36558; 71045; 74176; 74470; 76937; 77001; 80048; 80053; 80061; 81001; 82550; 82553; 82948; 83690; 83880; 84132; 84443; 84484; 85025; 85610; 85730; 87086; 87186; 93005; 96372; 97139; 99284; J1817; J1956; J2001; J2270; J2405; J7050; J7121